=== PATIENT | female | born 1945 | race Caucasian/White ===

== ENCOUNTER 2016-07-20 09:46 | Observation (INO) | payer MEDICARE, BC ==
--- NOTE | 2016-07-20 10:07 | EDM.PDOC ---
ED HISTORY OF PRESENT ILLNESS - General Chief Complaint: Cardiovascular Problem Stated Complaint: A FIB Time Seen by Provider: 07/20/16 10:01 Source of Information: Reports: Patient History Limitations: Reports: No limitations - History of Present Illness INITIAL COMMENTS - FREE TEXT/NARRATIVE: 71-year-old female attends the ED with her . She is aware of palpitations in her chest for the last few days but quite bad overnight. She couldn't sleep because of the palpitations. Unclear of the right but notices that time it seems to be higher than 130. She has a history of intermittent atrial fibrillation. She is on digoxin for rate control.also on the Toprol and Cardizem.On Xarelto for blood thinner. No real significant symptoms related to the palpitations such as chest pain dyspnea dizziness or lightheadedness. She did have breakfast this morning. She did take all her normal medications. Only change recently was a decrease in her Bystolic medication to one half tabletthe last time she seen her section hand. Symptom Onset Date: 07/18/16 Timing/Duration: Reports: Hour(s):, Getting worse, Gradual onset Severity: moderate Location, General: Reports: chest (complications.) Quality: Reports: Other (no pain in her chest. Just the awareness of the palpitations is enough to be an irritant and make her worry that something more wrong.) Worsens with: Reports: None Context, General: Reports: Other (they don't seem to be any worse if she is up and walking.). Denies: Activity, Exercise, Lifting, Sick contact, Trauma Associated Symptoms (General): Reports: cough (bring up a little bit of), cough w sputum ( clear phlegm.clear phlegm), diaphoresis, malaise, weakness. Denies: chest pain, fever/chills, headaches, loss of appetite, nausea/vomiting, rash, seizure, shortness of breath, syncope Treatments SEED SERVICE ADVISOR: Reports: Other (see below) (9) - Related Data Allergies/ADRs: Allergies Allergy/AdvReac Type Severity Reaction Status Date / Time formaldehyde Allergy Severe Rash Verified 07/20/16 09:57 latex Allergy Severe Rash Verified 07/20/16 09:57 morphine Allergy Severe Rash Verified 07/20/16 09:57 Sulfa (Sulfonamide Allergy Severe Rash Verified 07/20/16 09:57 Antibiotics) celecoxib Allergy Unknown Cannot Verified 07/20/16 09:57 Remember fluconazole Allergy Unknown Cannot Verified 07/20/16 09:57 Remember quaternium [Quaternium] Allergy Unknown Cannot Verified 07/20/16 09:57 Remember tapentadol AdvReac Intermediate Hallucinati Verified 07/20/16 09:57 ons mushroom Allergy Severe Rash Uncoded 07/20/16 09:57 Home Meds: Home Meds Albuterol Sulfate [Albuterol Sulfate HFA] 2 puff INH DAILY PRN 07/11/14 [History ] Aspirin [Children's Aspirin] 81 mg PO DAILY 07/11/14 [History] Aspirin [Halfprin] 81 mg PO DAILY 07/11/14 [History] B2/Vit A,C & E/Lut/Zeaxanth/Mn [Icaps] 1 tab PO DAILY 07/11/14 [History] Clobetasol [Clobetasol 0.05%] 1 applic TOP ASDIRECTED PRN 07/11/14 [History] Desonide [Desonide 0.05%] 1 applic TOP ASDIRECTED PRN 07/11/14 [History] Diltiazem [Cardizem CD] 240 mg PO DAILY 07/11/14 [History] Docusate Sodium 100 mg PO DAILY 07/11/14 [History] Estradiol [Vagifem] 10 mcg PO ASDIRECTED 07/11/14 [History] Levothyroxine Sodium 25 mg PO DAILY 07/11/14 [History] Metoprolol Tartrate [Lopressor] 50 mg PO BID 07/11/14 [History] Nabumetone [Relafen] 500 mg PO ASDIRECTED 07/11/14 [History] Olmesartan Medoxomil [Benicar] 20 mg PO DAILY 07/11/14 [History] Omeprazole [Prilosec] 20 mg PO DAILY 07/11/14 [History] Triamcinolone Acetonide [Triamcinolone Acetonide 0.1% Crm] 1 applic TOP ASDIRECTED 07/11/14 [History] metFORMIN [Glucophage XR] 250 mg PO BID 07/11/14 [History] Digoxin [Lanoxin] 125 mcg PO DAILY #30 tablet 07/13/14 [Rx] Rivaroxaban [Xarelto] 20 mg PO QPM #30 tablet 07/13/14 [Rx] Diltiazem [Cardizem CD] 360 mg PO DAILY #30 cap.cd 07/20/16 [Rx] Magnesium Chloride [Slow-Mag] 71.5 mg PO DAILY #60 tablet. 07/20/16 [Rx] Past Medical History Cardiovascular History: Reports: Afib (intermittently. He is on Xarelto .), High cholesterol, Hypertension Respiratory History: Reports: Asthma Musculoskeletal History: Reports: Osteoarthritis Endocrine/Metabolic History: Reports: Diabetes, type II (using glyburide for control.), Hypothyroidism Social & Family History - Tobacco Use Smoking Status *Q: Never Smoker Second Hand Smoke Exposure: No - Alcohol Use Days Per Week of Alcohol Use: 0 - Recreational Drug Use Recreational Drug Use: No - Living Situation & Occupation Living situation: Reports: , with spouse Occupation: retired ED ROS GENERAL - Review of Systems Review Of Systems: See Below Constitutional: Reports: malaise, weakness, fatigue. Denies: fever, chills, night sweats, diaphoresis, decreased appetite, weight loss HEENT: Reports: No symptoms Respiratory: Reports: cough (with a bit of sputum production clear mostly.). Denies: shortness of breath, wheezing, pleuritic chest pain, sputum Cardiovascular: Reports: Blood pressure problem, Lightheadedness, Palpitations. Denies: Chest pain, Claudication (a little lower this morning than usual.), Dyspnea on exertion, Edema (very mild.), Orthopnea Endocrine: Reports: fatigue GI/Abdominal: Reports: Abdominal pain Musculoskeletal: Reports: no symptoms Skin: Reports: no symptoms Neurological: Reports: no symptoms Psychiatric: Reports: Anxiety ED EXAM, GENERAL - Physical Exam Exam: See Below Exam Limited By: No limitations General Appearance: alert, moderate distress (tearful and distressed because of the palpitations.) Eye Exam: bilateral eye: normal inspection Throat/Mouth: Normal inspection, Normal lips, Normal teeth, Normal oropharynx Head: atraumatic, normocephalic Neck: normal inspection, supple, non-tender, full range of motion. No: lymphadenopathy (L), lymphadenopathy (R) Respiratory/Chest: no respiratory distress, lungs clear, normal breath sounds, no accessory muscle use, chest non-tender. No: rales, rhonchi, wheezing Cardiovascular: no edema, no gallop, no murmur, no rub, irregularly irregular ( heart rate is anywhere from 75-147 was the highest ever seen it. Her the most part is seems to be controlled rate in the 70-95 range.) Peripheral Pulses: 1+: posterior tibial (L), posterior tibial (R), dorsalis pedis (L), dorsalis pedis (R) GI/Abdominal: normal bowel sounds, soft, non tender, no organomegaly, no distention, no abnormal bruit Back Exam: normal inspection, full range of motion. No: CVA tenderness (L), CVA tenderness (R) Extremities: normal inspection, normal range of motion, non-tender, no pedal edema, normal capillary refill Neurological: alert, oriented, CN II-XII intact, normal cognition, normal gait Psychiatric: tearful Skin Exam: Warm, Dry, Intact, Normal color, No rash ED CARDIOLOGY PROCEDURES - Cardioversion Time of Cardioversion: 15:53 Indication: atrial flutter with RVR Patient Counseled: Yes Informed Consent Obtained: Yes Preparation: IV access, airway management equipment, supplemental oxygen, RT in room, monitor, reversal agents available Pre-procedure Sedation: midazolam, fentanyl Cardioversion Energy: 50J sync Mode: biphasic Successful: Yes Number of Attempts: 1 Patient Condition Post Cardioversion: improved Post Cardioversion EKG Reviewed: Yes ED PROCEDURAL SEDATION - Pre Procedure Indications: other (cardioversion) Preparations: procedure explained, consent signed, RT in room, oxygen, continuous pulse oximeter, suction, continuous hall monitor, constant attendance, capnography - Physical Exam Airway: normal anatomy Cardiovascular: irregular rythum Respiratory: normal breath sounds Neurological: alert, responsive, NAD Meilampati Classification: 1 (soft palate, anterior/posterior tonsillar pillars , uvula visible) - Procedure Sedation Sedation: versed (PO) (4 mg), fentanyl (100 mcg) ASA Classification: 2 (Patient with a mild systemic disease) - Intra Procedure Condition during procedure: moderately sedated, vital signs stable, oxygenation stable, handled secretions adequately Complications: none Reversal: none - Post Procedure Condition after procedure: alert, NAD, responds to verbal stimuli - Discharge Condition Patient returned to pre-procedure baseline: Yes Alert prior to discharge: Yes Ambulatory with assistance: Yes Vital signs normal: Yes Time spent with sedated patient: 10 min EKG INTERPRETATION EKG Date: 07/20/16 Time: 10:15 Rhythm: a-flutter (with a 4-1 conduction block) Rate (beats/min): 68 [place]: LAD-left axis deviation (-50. IE left anterior fascicular block) P-wave: variable QRS: other (Q waves in leads V1 V2 suggesting old anteroseptal myocardial infarction.poor R-wave progression.) ST-T: depressed (mild ST depression V3 to V6.) QT: normal Course - Vital Signs Last Recorded V/S: Last Vital Signs Temp 36.4 C 07/20/16 09:57 Pulse 74 07/20/16 14:14 Resp 12 07/20/16 12:29 BP 116/63 07/20/16 14:14 Pulse Ox 100 07/20/16 12:29 - Orders/Labs/Meds Orders: Active Orders 24 hr Category Date Time Status EKG 12 Lead [EKG Documentation Completion] [RC] STAT Care 07/20/16 16:10 Active EKG Documentation Completion [RC] STAT Care 07/20/16 10:06 Active Chest 1V Frontal [CR] Stat Exams 07/20/16 10:06 Taken Sodium Chloride 0.9% [Normal Saline] 1,000 ml Med 07/20/16 10:15 Active IV ASDIRECTED Medication Orders Sodium Chloride (Normal Saline) 1,000 mls @ 100 mls/hr IV ASDIRECTED YOJANA Last Admin: 07/20/16 10:42 Dose: 100 mls/hr Labs: Laboratory Tests 07/20/16 07/20/16 07/20/16 Range/Units 10:22 10:22 10:22 WBC 8.13 (3.98-10.04) K/mm3 RBC 4.72 (3.98-5.22) M/mm3 Hgb 13.8 (11.2-15.7) gm/L Hct 41.8 (34.1-44.9) % MCV 88.6 (79.4-94.8) fl MCH 29.2 (25.6-32.2) pg MCHC 33.0 (32.2-35.5) g/dl RDW Std Deviation 44.7 (36.4-46.3) fL Plt Count 253 (182-369) K/mm3 MPV 10.3 (9.4-12.3) fl Neutrophils % (Manual) 47 (40-60) % Band Neutrophils % 0 (0-10) % Lymphocytes % (Manual) 44 H (20-40) % Atypical Lymphs % 0 % Monocytes % (Manual) 5 (2-10) % Eosinophils % (Manual) 4 (0.7-5.8) % Basophils % (Manual) 0 L (0.1-1.2) Platelet Estimate Adequate RBC Morph Comment Normal PT (8.0-13.0) SECONDS INR Sodium 140 (136-145) mEq/L Potassium 4.1 (3.5-5.1) mEq/L Chloride 105 (98-107) mEq/L Carbon Dioxide 25 (21-32) mEq/L Anion Gap 14.1 (5-15) BUN 16 (7-18) mg/dL Creatinine 1.1 H (0.55-1.02) mg/dL Est Cr Clr Drug Dosing 50.73 mL/min Estimated GFR (MDRD) 49 (>60) mL/min BUN/Creatinine Ratio 14.5 (14-18) Glucose 102 (83-115) mg/dL Calcium 9.7 (8.5-10.1) mg/dL Magnesium 1.7 L (1.8-2.4) mg/dl Total Bilirubin 0.4 (0.2-1.0) mg/dL AST 16 (15-37) U/L ALT 25 (14-59) U/L Alkaline Phosphatase 84 (46-116) U/L CK-MB (CK-2) 1.0 (0-3.6) ng/ml Troponin I < 0.017 (0.00-0.056) ng/mL C-Reactive Protein 0.5 (<1.0) mg/dL B-Natriuretic Peptide 251 H (0-100) pg/mL Total Protein 6.9 (6.4-8.2) g/dl Albumin 3.5 (3.4-5.0) g/dl Globulin 3.4 gm/dL Albumin/Globulin Ratio 1.0 (1-2) TSH 3rd Generation 0.517 (0.358-3.74) uIU/mL Urine Color (Yellow) Urine Appearance (Clear) Urine pH (5.0-8.0) Ur Specific [place] (1.005-1.030) Urine Protein (Negative) Urine Glucose (UA) (Negative) Urine Ketones (Negative) Urine Occult Blood (Negative) Urine Nitrite (Negative) Urine Bilirubin (Negative) Urine Urobilinogen (0.2-1.0) Ur Leukocyte Esterase (Negative) Urine RBC (0-5) /hpf Urine WBC (0-5) /hpf Ur Squamous Epith Cells (0-5) /hpf Urine Bacteria (FEW) /hpf Urine Mucus (FEW) /hpf Digoxin 0.7 L (0.9-2.0) ng/mL 07/20/16 07/20/16 Range/Units 10:22 11:30 WBC (3.98-10.04) K/mm3 RBC (3.98-5.22) M/mm3 Hgb (11.2-15.7) gm/L Hct (34.1-44.9) % MCV (79.4-94.8) fl MCH (25.6-32.2) pg MCHC (32.2-35.5) g/dl RDW Std Deviation (36.4-46.3) fL Plt Count (182-369) K/mm3 MPV (9.4-12.3) fl Neutrophils % (Manual) (40-60) % Band Neutrophils % (0-10) % Lymphocytes % (Manual) (20-40) % Atypical Lymphs % % Monocytes % (Manual) (2-10) % Eosinophils % (Manual) (0.7-5.8) % Basophils % (Manual) (0.1-1.2) Platelet Estimate RBC Morph Comment PT 11.8 (8.0-13.0) SECONDS INR 1.08 Sodium (136-145) mEq/L Potassium (3.5-5.1) mEq/L Chloride (98-107) mEq/L Carbon Dioxide (21-32) mEq/L Anion Gap (5-15) BUN (7-18) mg/dL Creatinine (0.55-1.02) mg/dL Est Cr Clr Drug Dosing mL/min Estimated GFR (MDRD) (>60) mL/min BUN/Creatinine Ratio (14-18) Glucose (83-115) mg/dL Calcium (8.5-10.1) mg/dL Magnesium (1.8-2.4) mg/dl Total Bilirubin (0.2-1.0) mg/dL AST (15-37) U/L ALT (14-59) U/L Alkaline Phosphatase (46-116) U/L CK-MB (CK-2) (0-3.6) ng/ml Troponin I (0.00-0.056) ng/mL C-Reactive Protein (<1.0) mg/dL B-Natriuretic Peptide (0-100) pg/mL Total Protein (6.4-8.2) g/dl Albumin (3.4-5.0) g/dl Globulin gm/dL Albumin/Globulin Ratio (1-2) TSH 3rd Generation (0.358-3.74) uIU/mL Urine Color Light yellow (Yellow) Urine Appearance Clear (Clear) Urine pH 6.5 (5.0-8.0) Ur Specific [place] 1.015 (1.005-1.030) Urine Protein Negative (Negative) Urine Glucose (UA) Negative (Negative) Urine Ketones Negative (Negative) Urine Occult Blood Trace-lysed H (Negative) Urine Nitrite Negative (Negative) Urine Bilirubin Negative (Negative) Urine Urobilinogen 0.2 (0.2-1.0) Ur Leukocyte Esterase Trace H (Negative) Urine RBC 0-5 (0-5) /hpf Urine WBC 5-10 H (0-5) /hpf Ur Squamous Epith Cells 5-10 H (0-5) /hpf Urine Bacteria Few (FEW) /hpf Urine Mucus Not seen (FEW) /hpf Digoxin (0.9-2.0) ng/mL Meds: Medications Generic Name Dose Route Start Last Admin Trade Name Freq PRN Reason Stop Dose Admin Sodium Chloride 1,000 mls @ 100 mls/hr 07/20/16 10:15 07/20/16 10:42 Normal Saline IV 100 mls/hr ASDIRECTED YOJANA Administration Discontinued Medications Generic Name Dose Route Start Last Admin Trade Name Freq PRN Reason Stop Dose Admin Diltiazem HCl 10 mg 07/20/16 12:18 07/20/16 12:33 Diltiazem IVPUSH 07/20/16 12:19 5 mg ONETIME ONE Administration Fentanyl 100 mcg 07/20/16 15:19 07/20/16 15:42 Sublimaze IVPUSH 07/20/16 15:20 100 mcg ONETIME ONE Administration Furosemide 40 mg 07/20/16 11:42 07/20/16 11:58 Lasix IVPUSH 07/20/16 11:43 40 mg NOW ONE Administration Metoprolol Tartrate 5 mg/ 55 mls @ 100 mls/hr 07/20/16 13:31 Sodium Chloride IV 07/20/16 14:03 ONETIME ONE Sodium Chloride 100 mls @ 999 mls/hr 07/20/16 16:15 Normal Saline IV 07/20/16 16:20 .BOLUS ONE Magnesium Oxide 400 mg 07/20/16 16:53 07/20/16 17:15 Magnesium Oxide PO 07/20/16 16:54 400 mg ONETIME ONE Administration Metoclopramide HCl 7.5 mg 07/20/16 15:17 07/20/16 15:33 Reglan IVPUSH 07/20/16 15:18 7.5 mg ONETIME ONE Administration Metoprolol Tartrate 5 mg 07/20/16 14:07 07/20/16 14:14 Lopressor IVPUSH 07/20/16 14:08 2 mg ONETIME ONE Administration Midazolam HCl 5 mg 07/20/16 15:19 07/20/16 15:48 Versed 1 Mg/Ml IVPUSH 07/20/16 15:20 Not Given ONETIME ONE Midazolam HCl Confirm 07/20/16 15:32 07/20/16 15:47 Versed 1 Mg/Ml Administered 07/20/16 15:33 6 mg Dose Administration 6 mg .ROUTE .[facility] ONE - Radiology Interpretation Free Text/Narrative:: 71-year-old female presents the ED with palpitations. She has a history of intermittent atrial fibrillation. She is rate controlled with digoxin metoprolol and Cartia sign. Bremer palpitations last 2-3 days but much worse over the last 24 hours. He disrupted his sleep last night because she is aware of palpitations. I think this is causing him anxiety in. There's something wrong. For the most part her rate is controlled in the 75-95 range. BP is 111/ 69. Sats are 96% on room air. She reports a productive cough. She denies soundly she is in failure jugular venous pulsations are not elevated. Therefore I will just have normal saline started at 100 mils per hour and monitor her for right. Serum digoxin level will be checked as well as routine labs including magnesium levels etc. One view chest x-ray to be done. - Re-Assessments/Exams Free Text/Narrative Re-Assessment/Exam: 07/20/16 11:10: ECG confirms atrial flutter with a 4-1 conduction block. There is a left anterior fascicular block with left axis deviation of -50. There are Q waves in leads V1 and V2 compatible with an old anteroseptal myocardial infarction. There is mild ST segment depression appreciated V3 to V6 leads. Abnormal ECG. Chest x-ray done portably shows normal size cardiac silhouette. There is some fullness of the right pulmonary artery and hilum. No pleural effusions are blunted costophrenic angles. 07/20/16 11:50 : labs reveal a white count of 8.13 with 47% neutrophils and no bands. Hemoglobin is 13.8 hematocrit of 41.6. Platelets 203,000. PT is 11.8 INR is 1.08. Creatinine is 1.1 anion gap is 14.1 magnesium slightly low at 1.7 BNP elevated at 251 digoxin therapeutic at 0.7. Plan would have her the nurses get her up on the commode and standing up around the bed side to see if her heart rate doesn't go up when she is standing. 07/20/16 12:19:heart rate jumps up to 133 per minute and his mother sustained. BP is one 111/68. Will give her Cardizem 10 mg IV bolus.ultimate plan will be to increase her Cardizem from 240-360 CD once daily. This should not help her to [place] level much higher than it already is. Blood pressure will need to be followed as she may not tolerate a higher dose of Cardizem. Slow-Mag 2 tablets once daily to her treatment plan to increase her magnesium level. 07/20/16 13:32 Even while sitting having dinner heart rate will travel as high as 130 per minute.will therefore give her Lopressor 5 mg IV over 5 minutes. 07/20/16 14:55her heart rate still wakes up into the one high 30s with sitting up. Blood pressure drops as low as 78 and is therefore very difficult to trying control rate. It is my believe that she needs to come into the hospital released as an observation status until we can adjust her medications slowly and appropriately to provide rate control as well as prevent significant hypertension. I will discuss her case with the on-call hospitalist at this time. 07/20/16 15:[address] Roca sewer separation designer hospitalist concern voiced about needing in the intensive care unit bed and at present one is not available.therefore I discussion entered into as to attempting cardioversion for this lady to try and restore normal sinus rhythm. I did discuss this with her and her and they've consented to the procedure under conscious sedation. Plan will be to use fentanyl and Versed. My plan would be then to have her admitted for observation after cardioversion. 07/20/16 16:19:cardioversion was carried out at 1553 hours and she returned to sinus rhythm at 72 per minutes after 50 J. BP remained a bit low in the 90s and therefore she will receive 100 mils fluid bolus for that ice saline at 150 mils per hour. Second ECG done shows sinus rhythm at 69 per minute. There is mild ST segment depression in V4 V5 and V6. There is Q waves in V1 and V2 suggestive of an old anteroseptal myocardial infarction similar to that identified on ECG # 1.note the initial troponins were less than 0.017. Free Text/Narrative Re-Assessment/Exam: 07/20/16 16:55 Patient is alert no acute and recovered from her conscious sedation. Heart rate remained sinus at 75 per minute. BP remains low at 102 / 68.will give her a magnesium oxide 400 mg tablet at this time. 07/20/16 18:05patient remains in sinus rhythm at 72 per minute. BP is up to 109 /on and 72 after 200 male fluid bolus. She is in mild congestive heart failure and we have given her a fair amount of fluid today. Will have to be monitored for development of congestive failure. Spoke with Dr. Roca and plan will be to admit her observation status on telemetry post cardioversion for atrial flutter. Departure - Departure Time of Disposition: 18:06 Disposition: Refer to Observation Condition: fair Clinical Impression: Atrial flutter, paroxysmal, Palpitations, History of cardioversion CHF NYHA class III (symptoms with mildly strenuous activities) Qualifiers: Congestive heart failure type: diastolic Congestive heart failure chronicity: acute on chronic Qualified Code(s): I50.33 - Acute on chronic diastolic ( congestive) heart failure Prescriptions: Diltiazem [Cardizem CD] 360 mg PO DAILY #30 cap.cd Magnesium Chloride [Slow-Mag] 71.5 mg PO DAILY #60 tablet. Instructions: Atrial Flutter, Heart Failure, [id number] Referrals: Cheko Herrera MD [Primary Care Provider] - Forms: ED Department Discharge Additional Instructions: ED HISTORY OF PRESENT ILLNESS - General Chief Complaint: Cardiovascular Problem Stated Complaint: A FIB Time Seen by Provider: 07/20/16 10:01 Source of Information: Reports: Patient History Limitations: Reports: No limitations - History of Present Illness INITIAL COMMENTS - FREE TEXT/NARRATIVE: 71-year-old female attends the ED with her . She is aware of palpitations in her chest for the last few days but quite bad overnight. She couldn't sleep because of the palpitations. Unclear of the right but notices that time it seems to be higher than 130. She has a history of intermittent atrial fibrillation. She is on digoxin for rate control.also on the Toprol and Cardizem.On Xarelto for blood thinner. No real significant symptoms related to the palpitations such as chest pain dyspnea dizziness or lightheadedness. She did have breakfast this morning. She did take all her normal medications. Only change recently was a decrease in her Bystolic medication to one half tabletthe last time she seen her section hand. Symptom Onset Date: 07/18/16 Timing/Duration: Reports: Hour(s):, Getting worse, Gradual onset Severity: moderate Location, General: Reports: chest (complications.) Quality: Reports: Other (no pain in her chest. Just the awareness of the palpitations is enough to be an irritant and make her worry that something more wrong.) Worsens with: Reports: None Context, General: Reports: Other (they don't seem to be any worse if she is up and walking.). Denies: Activity, Exercise, Lifting, Sick contact, Trauma Associated Symptoms (General): Reports: cough (bring up a little bit of), cough w sputum ( clear phlegm.clear phlegm), diaphoresis, malaise, weakness. Denies: chest pain, fever/chills, headaches, loss of appetite, nausea/vomiting, rash, seizure, shortness of breath, syncope Treatments SEED SERVICE ADVISOR: Reports: Other (see below) (9) - Related Data Allergies/ADRs: Allergies Allergy/AdvReac Type Severity Reaction Status Date / Time formaldehyde Allergy Severe Rash Verified 07/20/16 09:57 latex Allergy Severe Rash Verified 07/20/16 09:57 morphine Allergy Severe Rash Verified 07/20/16 09:57 Sulfa (Sulfonamide Allergy Severe Rash Verified 07/20/16 09:57 Antibiotics) celecoxib Allergy Unknown Cannot Verified 07/20/16 09:57 Remember fluconazole Allergy Unknown Cannot Verified 07/20/16 09:57 Remember quaternium [Quaternium] Allergy Unknown Cannot Verified 07/20/16 09:57 Remember tapentadol AdvReac Intermediate Hallucinati Verified 07/20/16 09:57 ons mushroom Allergy Severe Rash Uncoded 07/20/16 09:57 Home Meds: Home Meds Albuterol Sulfate [Albuterol Sulfate HFA] 2 puff INH DAILY PRN 07/11/14 [History ] Aspirin [Children's Aspirin] 81 mg PO DAILY 07/11/14 [History] Aspirin [Halfprin] 81 mg PO DAILY 07/11/14 [History] B2/Vit A,C & E/Lut/Zeaxanth/Mn [Icaps] 1 tab PO DAILY 07/11/14 [History] Clobetasol [Clobetasol 0.05%] 1 applic TOP ASDIRECTED PRN 07/11/14 [History] Desonide [Desonide 0.05%] 1 applic TOP ASDIRECTED PRN 07/11/14 [History] Diltiazem [Cardizem CD] 240 mg PO DAILY 07/11/14 [History] Docusate Sodium 100 mg PO DAILY 07/11/14 [History] Estradiol [Vagifem] 10 mcg PO ASDIRECTED 07/11/14 [History] Levothyroxine Sodium 25 mg PO DAILY 07/11/14 [History] Metoprolol Tartrate [Lopressor] 50 mg PO BID 07/11/14 [History] Nabumetone [Relafen] 500 mg PO ASDIRECTED 07/11/14 [History] Olmesartan Medoxomil [Benicar] 20 mg PO DAILY 07/11/14 [History] Omeprazole [Prilosec] 20 mg PO DAILY 07/11/14 [History] Triamcinolone Acetonide [Triamcinolone Acetonide 0.1% Crm] 1 applic TOP ASDIRECTED 07/11/14 [History] metFORMIN [Glucophage XR] 250 mg PO BID 07/11/14 [History] Digoxin [Lanoxin] 125 mcg PO DAILY #30 tablet 07/13/14 [Rx] Rivaroxaban [Xarelto] 20 mg PO QPM #30 tablet 07/13/14 [Rx] Diltiazem [Cardizem CD] 360 mg PO DAILY #30 cap.cd 07/20/16 [Rx] Magnesium Chloride [Slow-Mag] 71.5 mg PO DAILY #60 tablet. 07/20/16 [Rx] Past Medical History Cardiovascular History: Reports: Afib (intermittently. He is on Xarelto .), High cholesterol, Hypertension Respiratory History: Reports: Asthma Musculoskeletal History: Reports: Osteoarthritis Endocrine/Metabolic History: Reports: Diabetes, type II (using glyburide for control.), Hypothyroidism Social & Family History - Tobacco Use Smoking Status *Q: Never Smoker Second Hand Smoke Exposure: No - Alcohol Use Days Per Week of Alcohol Use: 0 - Recreational Drug Use Recreational Drug Use: No - Living Situation & Occupation Living situation: Reports: , with spouse Occupation: retired ED ROS GENERAL - Review of Systems Review Of Systems: See Below Constitutional: Reports: malaise, weakness, fatigue. Denies: fever, chills, night sweats, diaphoresis, decreased appetite, weight loss HEENT: Reports: No symptoms Respiratory: Reports: cough (with a bit of sputum production clear mostly.). Denies: shortness of breath, wheezing, pleuritic chest pain, sputum Cardiovascular: Reports: Blood pressure problem, Lightheadedness, Palpitations. Denies: Chest pain, Claudication (a little lower this morning than usual.), Dyspnea on exertion, Edema (very mild.), Orthopnea Endocrine: Reports: fatigue GI/Abdominal: Reports: Abdominal pain Musculoskeletal: Reports: no symptoms Skin: Reports: no symptoms Neurological: Reports: no symptoms Psychiatric: Reports: Anxiety ED EXAM, GENERAL - Physical Exam Exam: See Below Exam Limited By: No limitations General Appearance: alert, moderate distress (tearful and distressed because of the palpitations.) Eye Exam: bilateral eye: normal inspection Throat/Mouth: Normal inspection, Normal lips, Normal teeth, Normal oropharynx Head: atraumatic, normocephalic Neck: normal inspection, supple, non-tender, full range of motion. No: lymphadenopathy (L), lymphadenopathy (R) Respiratory/Chest: no respiratory distress, lungs clear, normal breath sounds, no accessory muscle use, chest non-tender. No: rales, rhonchi, wheezing Cardiovascular: no edema, no gallop, no murmur, no rub, irregularly irregular ( heart rate is anywhere from 75-147 was the highest ever seen it. Her the most part is seems to be controlled rate in the 70-95 range.) Peripheral Pulses: 1+: posterior tibial (L), posterior tibial (R), dorsalis pedis (L), dorsalis pedis (R) GI/Abdominal: normal bowel sounds, soft, non tender, no organomegaly, no distention, no abnormal bruit Back Exam: normal inspection, full range of motion. No: CVA tenderness (L), CVA tenderness (R) Extremities: normal inspection, normal range of motion, non-tender, no pedal edema, normal capillary refill Neurological: alert, oriented, CN II-XII intact, normal cognition, normal gait Psychiatric: tearful Skin Exam: Warm, Dry, Intact, Normal color, No rash EKG INTERPRETATION EKG Date: 07/20/16 Time: 10:15 Rhythm: a-flutter (with a 4-1 conduction block) Rate (beats/min): 68 [place]: LAD-left axis deviation (-50. IE left anterior fascicular block) P-wave: variable QRS: other (Q waves in leads V1 V2 suggesting old anteroseptal myocardial infarction.poor R-wave progression.) ST-T: depressed (mild ST depression V3 to V6.) QT: normal Course - Vital Signs Last Recorded V/S: Last Vital Signs Temp 36.4 C 07/20/16 09:57 Pulse 74 07/20/16 14:14 Resp 12 07/20/16 12:29 BP 116/63 07/20/16 14:14 Pulse Ox 100 07/20/16 12:29 - Orders/Labs/Meds Orders: Active Orders 24 hr Category Date Time Status EKG Documentation Completion [RC] STAT Care 07/20/16 10:06 Active Chest 1V Frontal [CR] Stat Exams 07/20/16 10:06 Taken Sodium Chloride 0.9% [Normal Saline] 1,000 ml Med 07/20/16 10:15 Active IV ASDIRECTED Medication Orders Sodium Chloride (Normal Saline) 1,000 mls @ 100 mls/hr IV ASDIRECTED YOJANA Last Admin: 07/20/16 10:42 Dose: 100 mls/hr Labs: Laboratory Tests 07/20/16 07/20/16 07/20/16 Range/Units 10:22 10:22 10:22 WBC 8.13 (3.98-10.04) K/mm3 RBC 4.72 (3.98-5.22) M/mm3 Hgb 13.8 (11.2-15.7) gm/L Hct 41.8 (34.1-44.9) % MCV 88.6 (79.4-94.8) fl MCH 29.2 (25.6-32.2) pg MCHC 33.0 (32.2-35.5) g/dl RDW Std Deviation 44.7 (36.4-46.3) fL Plt Count 253 (182-369) K/mm3 MPV 10.3 (9.4-12.3) fl Neutrophils % (Manual) 47 (40-60) % Band Neutrophils % 0 (0-10) % Lymphocytes % (Manual) 44 H (20-40) % Atypical Lymphs % 0 % Monocytes % (Manual) 5 (2-10) % Eosinophils % (Manual) 4 (0.7-5.8) % Basophils % (Manual) 0 L (0.1-1.2) Platelet Estimate Adequate RBC Morph Comment Normal PT (8.0-13.0) SECONDS INR Sodium 140 (136-145) mEq/L Potassium 4.1 (3.5-5.1) mEq/L Chloride 105 (98-107) mEq/L Carbon Dioxide 25 (21-32) mEq/L Anion Gap 14.1 (5-15) BUN 16 (7-18) mg/dL Creatinine 1.1 H (0.55-1.02) mg/dL Est Cr Clr Drug Dosing 50.73 mL/min Estimated GFR (MDRD) 49 (>60) mL/min BUN/Creatinine Ratio 14.5 (14-18) Glucose 102 (83-115) mg/dL Calcium 9.7 (8.5-10.1) mg/dL Magnesium 1.7 L (1.8-2.4) mg/dl Total Bilirubin 0.4 (0.2-1.0) mg/dL AST 16 (15-37) U/L ALT 25 (14-59) U/L Alkaline Phosphatase 84 (46-116) U/L CK-MB (CK-2) 1.0 (0-3.6) ng/ml Troponin I < 0.017 (0.00-0.056) ng/mL C-Reactive Protein 0.5 (<1.0) mg/dL B-Natriuretic Peptide 251 H (0-100) pg/mL Total Protein 6.9 (6.4-8.2) g/dl Albumin 3.5 (3.4-5.0) g/dl Globulin 3.4 gm/dL Albumin/Globulin Ratio 1.0 (1-2) TSH 3rd Generation 0.517 (0.358-3.74) uIU/mL Urine Color (Yellow) Urine Appearance (Clear) Urine pH (5.0-8.0) Ur Specific [place] (1.005-1.030) Urine Protein (Negative) Urine Glucose (UA) (Negative) Urine Ketones (Negative) Urine Occult Blood (Negative) Urine Nitrite (Negative) Urine Bilirubin (Negative) Urine Urobilinogen (0.2-1.0) Ur Leukocyte Esterase (Negative) Urine RBC (0-5) /hpf Urine WBC (0-5) /hpf Ur Squamous Epith Cells (0-5) /hpf Urine Bacteria (FEW) /hpf Urine Mucus (FEW) /hpf Digoxin 0.7 L (0.9-2.0) ng/mL 07/20/16 07/20/16 Range/Units 10:22 11:30 WBC (3.98-10.04) K/mm3 RBC (3.98-5.22) M/mm3 Hgb (11.2-15.7) gm/L Hct (34.1-44.9) % MCV (79.4-94.8) fl MCH (25.6-32.2) pg MCHC (32.2-35.5) g/dl RDW Std Deviation (36.4-46.3) fL Plt Count (182-369) K/mm3 MPV (9.4-12.3) fl Neutrophils % (Manual) (40-60) % Band Neutrophils % (0-10) % Lymphocytes % (Manual) (20-40) % Atypical Lymphs % % Monocytes % (Manual) (2-10) % Eosinophils % (Manual) (0.7-5.8) % Basophils % (Manual) (0.1-1.2) Platelet Estimate RBC Morph Comment PT 11.8 (8.0-13.0) SECONDS INR 1.08 Sodium (136-145) mEq/L Potassium (3.5-5.1) mEq/L Chloride (98-107) mEq/L Carbon Dioxide (21-32) mEq/L Anion Gap (5-15) BUN (7-18) mg/dL Creatinine (0.55-1.02) mg/dL Est Cr Clr Drug Dosing mL/min Estimated GFR (MDRD) (>60) mL/min BUN/Creatinine Ratio (14-18) Glucose (83-115) mg/dL Calcium (8.5-10.1) mg/dL Magnesium (1.8-2.4) mg/dl Total Bilirubin (0.2-1.0) mg/dL AST (15-37) U/L ALT (14-59) U/L Alkaline Phosphatase (46-116) U/L CK-MB (CK-2) (0-3.6) ng/ml Troponin I (0.00-0.056) ng/mL C-Reactive Protein (<1.0) mg/dL B-Natriuretic Peptide (0-100) pg/mL Total Protein (6.4-8.2) g/dl Albumin (3.4-5.0) g/dl Globulin gm/dL Albumin/Globulin Ratio (1-2) TSH 3rd Generation (0.358-3.74) uIU/mL Urine Color Light yellow (Yellow) Urine Appearance Clear (Clear) Urine pH 6.5 (5.0-8.0) Ur Specific [place] 1.015 (1.005-1.030) Urine Protein Negative (Negative) Urine Glucose (UA) Negative (Negative) Urine Ketones Negative (Negative) Urine Occult Blood Trace-lysed H (Negative) Urine Nitrite Negative (Negative) Urine Bilirubin Negative (Negative) Urine Urobilinogen 0.2 (0.2-1.0) Ur Leukocyte Esterase Trace H (Negative) Urine RBC 0-5 (0-5) /hpf Urine WBC 5-10 H (0-5) /hpf Ur Squamous Epith Cells 5-10 H (0-5) /hpf Urine Bacteria Few (FEW) /hpf Urine Mucus Not seen (FEW) /hpf Digoxin (0.9-2.0) ng/mL Meds: Medications Generic Name Dose Route Start Last Admin Trade Name Jenna PRN Reason Stop Dose Admin Sodium Chloride 1,000 mls @ 100 mls/hr 07/20/16 10:15 07/20/16 10:42 Normal Saline IV 100 mls/hr ASDIRECTED YOJANA Administration Discontinued Medications Generic Name Dose Route Start Last Admin Trade Name Jenna PRN Reason Stop Dose Admin Diltiazem HCl 10 mg 07/20/16 12:18 07/20/16 12:33 Diltiazem IVPUSH 07/20/16 12:19 5 mg ONETIME ONE Administration Furosemide 40 mg 07/20/16 11:42 07/20/16 11:58 Lasix IVPUSH 07/20/16 11:43 40 mg NOW ONE Administration Metoprolol Tartrate 5 mg/ 55 mls @ 100 mls/hr 07/20/16 13:31 Sodium Chloride IV 07/20/16 14:03 ONETIME ONE Metoprolol Tartrate 5 mg 07/20/16 14:07 07/20/16 14:14 Lopressor IVPUSH 07/20/16 14:08 2 mg ONETIME ONE Administration - Radiology Interpretation Free Text/Narrative:: 71-year-old female presents the ED with palpitations. She has a history of intermittent atrial fibrillation. She is rate controlled with digoxin metoprolol and Cartia sign. Bremer palpitations last 2-3 days but much worse over the last 24 hours. He disrupted his sleep last night because she is aware of palpitations. I think this is causing him anxiety in. There's something wrong. For the most part her rate is controlled in the 75-95 range. BP is 111/ 69. Sats are 96% on room air. She reports a productive cough. She denies soundly she is in failure jugular venous pulsations are not elevated. Therefore I will just have normal saline started at 100 mils per hour and monitor her for right. Serum digoxin level will be checked as well as routine labs including magnesium levels etc. One view chest x-ray to be done. - Re-Assessments/Exams Free Text/Narrative Re-Assessment/Exam: 07/20/16 11:10: ECG confirms atrial flutter with a 4-1 conduction block. There is a left anterior fascicular block with left axis deviation of -50. There are Q waves in leads V1 and V2 compatible with an old anteroseptal myocardial infarction. There is mild ST segment depression appreciated V3 to V6 leads. Abnormal ECG. Chest x-ray done portably shows normal size cardiac silhouette. There is some fullness of the right pulmonary artery and hilum. No pleural effusions are blunted costophrenic angles. 07/20/16 11:50 : labs reveal a white count of 8.13 with 47% neutrophils and no bands. Hemoglobin is 13.8 hematocrit of 41.6. Platelets 203,000. PT is 11.8 INR is 1.08. Creatinine is 1.1 anion gap is 14.1 magnesium slightly low at 1.7 BNP elevated at 251 digoxin therapeutic at 0.7. Plan would have her the nurses get her up on the commode and standing up around the bed side to see if her heart rate doesn't go up when she is standing. 07/20/16 12:19:heart rate jumps up to 133 per minute and his mother sustained. BP is one 111/68. Will give her Cardizem 10 mg IV bolus.ultimate plan will be to increase her Cardizem from 240-360 CD once daily. This should not help her to [place] level much higher than it already is. Blood pressure will need to be followed as she may not tolerate a higher dose of Cardizem. Slow-Mag 2 tablets once daily to her treatment plan to increase her magnesium level. 07/20/16 13:32 Even while sitting having dinner heart rate will travel as high as 130 per minute.will therefore give her Lopressor 5 mg IV over 5 minutes. Departure - Departure Time of Disposition: 11:48 Disposition: Home, Self-Care 01 Condition: fair Clinical Impression: Atrial flutter, paroxysmal CHF NYHA class III (symptoms with mildly strenuous activities) Qualifiers: Congestive heart failure type: diastolic Congestive heart failure chronicity: acute on chronic Qualified Code(s): I50.33 - Acute on chronic diastolic ( congestive) heart failure Prescriptions: Diltiazem [Cardizem CD] 360 mg PO DAILY #30 cap.cd Magnesium Chloride [Slow-Mag] 71.5 mg PO DAILY #60 tablet. Instructions: Atrial Flutter, Heart Failure, [id number] Referrals: Cheko Herrera MD [Primary Care Provider] - Forms: ED Department Discharge Additional Instructions: Evaluation in the emergency room today in regards to recurrence of paroxysmal atrial flutter. This causes palpitations within your chest. You have a history of similar episodes in the past although they have not lasted this long in the past. Lab work identified serum digoxn to be in the therapeutic range. This is one of the medicines being used to control heart rate . Cardizem dose is currently 240 mg extended release or CD preparation . Suggest increasing this to 360 mg once daily in an effort to bring rate under better control. Metoprolol will also be continued at 50 twice a day as it is being used for blood pressure and rate control as well. At this time the Benicar can stay at 20 mg once daily. The only other thing identified in your lab work was a slightly low serum magnesium level. It would be beneficial to take a magnesium supplement called Slow-Mag 2 tablets once daily as a supplement. Labs also did identify a little extra fluid within your lungs today, likely due to the elevated heart rate over the last day or 2. You did receive Lasix 40 mg intravenously while in the ED to help clear fluid from the lungs.when used in a collar your heart rate did increase to as high as 137 per minute. He therefore ordered given a 10 mg dose of extra cardizem to help control rate. the increased dose in cardia sign to 360 mg CD preparation hopefully will control rate better and prevent recurrence of paroxysmal atrial flutter in the future.Suggest followup with your personal physician in 4-5 days time for blood pressure and heart rate review.Suggest starting the new dose of Cardizem tomorrow. - My Orders Last 24 Hours: My Active Orders 07/20/16 10:06 EKG Documentation Completion [RC] STAT Chest 1V Frontal [CR] Stat 07/20/16 10:15 Sodium Chloride 0.9% [Normal Saline] 1,000 ml IV ASDIRECTED - Assessment/Plan Last 24 Hours: My Active Orders 07/20/16 10:06 EKG Documentation Completion [RC] STAT Chest 1V Frontal [CR] Stat 07/20/16 10:15 Sodium Chloride 0.9% [Normal Saline] 1,000 ml IV ASDIRECTED Evaluation in the emergency room today in regards to recurrence of paroxysmal atrial flutter. This causes palpitations within your chest. You have a history of similar episodes in the past although they have not lasted this long in the past. Lab work identified serum digoxn to be in the therapeutic range. This is one of the medicines being used to control heart rate . Cardizem dose is currently 240 mg extended release or CD preparation . Suggest increasing this to 360 mg once daily in an effort to bring rate under better control. Metoprolol will also be continued at 50 twice a day as it is being used for blood pressure and rate control as well. At this time the Benicar can stay at 10 mg once daily. The only other thing identified in your lab work was a slightly low serum magnesium level. It would be beneficial to take a magnesium supplement called Slow-Mag 2 tablets once daily as a supplement. Labs also did identify a little extra fluid within your lungs today, likely due to the elevated heart rate over the last day or 2. You did receive Lasix 40 mg intravenously while in the ED to help clear fluid from the lungs.when used in a collar your heart rate did increase to as high as 137 per minute. You were therefore given a 10 mg dose of cardizem to help control rate. due to continued elevated heart rate well eating dinner up to 123 and 1:30 per minute you were given a small dose of metoprolol or Lopressor 2 mg. The plan is to give you a little bit more but it did have an affect to drop your blood pressure and therefore 2 mg only was given. Take her normal dose of metoprolol tonight at suppertime. Plan is to increase your cardizem to 360 mg CD preparation once daily which will hopefully provide better rater control and prevent recurrence of paroxysmal atrial flutter in the future. Suggest followup with your personal physician in 3-4 days time for blood pressure and heart rate review.Suggest starting the new dose of Cardizem tomorrow. - My Orders Last 24 Hours: My Active Orders 07/20/16 10:06 EKG Documentation Completion [RC] STAT Chest 1V Frontal [CR] Stat 07/20/16 10:15 Sodium Chloride 0.9% [Normal Saline] 1,000 ml IV ASDIRECTED 07/20/16 16:10 EKG 12 Lead [EKG Documentation Completion] [RC] STAT - Assessment/Plan Last 24 Hours: My Active Orders 07/20/16 10:06 EKG Documentation Completion [RC] STAT Chest 1V Frontal [CR] Stat 07/20/16 10:15 Sodium Chloride 0.9% [Normal Saline] 1,000 ml IV ASDIRECTED 07/20/16 16:10 EKG 12 Lead [EKG Documentation Completion] [RC] STAT
[2016-07-20] MEDS: Sodium Chloride 0.9% 1,000 ML IV SCH ×2 (10:42→20:36)
[2016-07-20] MEDS ORDERED: Furosemide 40 MG/4 ML VIAL IVPUSH ONE (11:42)
[2016-07-20] MEDS: Diltiazem 25 MG/5 ML SDV IVPUSH ONE ×2 (12:27→12:33)
[2016-07-20] MEDS ORDERED: Metoprolol Tartrate 5 MG in Sodium Chloride 0.9% 50 ML IV ONE (13:31)
[2016-07-20] MEDS ORDERED: Metoprolol Tartrate 5 MG/5 ML SDV IVPUSH ONE (14:07)
[2016-07-20] MEDS ORDERED: Metoclopramide 10 MG/2 ML SDV IVPUSH ONE (15:17)
[2016-07-20] MEDS ORDERED: Midazolam 1 MG/ML 5 ML SDV IVPUSH ONE (15:19)
[2016-07-20] MEDS ORDERED: fentaNYL 100 MCG/2 ML SDV IVPUSH ONE (15:19)
[2016-07-20] MEDS ORDERED: Midazolam 1 MG/ML 2 ML SDV ONE (15:32)
[2016-07-20] MEDS ORDERED: Sodium Chloride 0.9% 100 ML IV ONE (16:15)
[2016-07-20] MEDS ORDERED: Magnesium Oxide 400 MG Tab PO ONE (16:53)
--- NOTE | 2016-07-20 18:10 | PCM.HP ---
H&P History of Present Illness - General Date of Service: 07/20/16 Admit Problem/Dx: Admission Diagnosis/Problem Admission Diagnosis/Problem Hypotension Source of Information: Patient, Old records, Provider, RN notes reviewed History Limitations: Reports: No limitations - History of Present Illness Initial Comments - Free Text/Narative: This is a 71 yo elderly white female with past medical hx/o HTN, HLD, Asthma, OA , DM2, GERD, and Hypothyroidism who comes in with c/o chest palpitations that started a few days ago and got worse overnight. She was found in Afib-RVR wtih HR in the high 130s-140s on presentation to ED. Patient carries a hx/o Paroxysmal Atrial Flutter on xarelto. She takes metoprolol, digoxin and cardizem for rate control medications. She admits to a little cough, diaphoresis, malaise and weakness for associated symptoms. 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 On her last visit her BB dose was cut down to half. Her EKG shows Atrial flutter with 4:1 conduction block with Q waves on lead V1- V2. Her CXR shows no acute abnormal findings. While, in ED patient underwent she received initial treatment but barely improved her heart rate. With poor response to initial rate control meds, patient and were offered for electrical candioversion and they agreed with the procedure. After fentanyl/versed were administered, patient them was cardioverted one time with 50J and her rhythm went into sinus with a rate of 72 bpm. However the patient developed post cardioversion hypotension and so she was referred to me for observation. She is full code. - Related Data Allergies/Adverse Reactions: Allergies Allergy/AdvReac Type Severity Reaction Status Date / Time formaldehyde Allergy Severe Rash Verified 07/20/16 09:57 latex Allergy Severe Rash Verified 07/20/16 09:57 morphine Allergy Severe Rash Verified 07/20/16 09:57 Sulfa (Sulfonamide Allergy Severe Rash Verified 07/20/16 09:57 Antibiotics) celecoxib Allergy Unknown Cannot Verified 07/20/16 09:57 Remember fluconazole Allergy Unknown Cannot Verified 07/20/16 09:57 Remember quaternium [Quaternium] Allergy Unknown Cannot Verified 07/20/16 09:57 Remember tapentadol AdvReac Intermediate Hallucinati Verified 07/20/16 09:57 ons mushroom Allergy Severe Rash Uncoded 07/20/16 09:57 Home Medications: Home Meds Diltiazem [Cardizem CD] 240 mg PO DAILY 07/11/14 [History] Estradiol [Vagifem] 10 mcg PO ASDIRECTED 07/11/14 [History] Levothyroxine Sodium 25 mg PO DAILY 07/11/14 [History] Metoprolol Tartrate [Lopressor] 50 mg PO BID 07/11/14 [History] Nabumetone [Relafen] 500 mg PO ASDIRECTED 07/11/14 [History] Olmesartan Medoxomil [Benicar] 10 mg PO DAILY 07/11/14 [History] Omeprazole [Prilosec] 20 mg PO DAILY 07/11/14 [History] Triamcinolone Acetonide [Triamcinolone Acetonide 0.1% Crm] 1 applic TOP ASDIRECTED 07/11/14 [History] metFORMIN [Glucophage XR] 1,000 mg PO BID 07/11/14 [History] Digoxin [Lanoxin] 125 mcg PO DAILY #30 tablet 07/13/14 [Rx] Rivaroxaban [Xarelto] 20 mg PO QPM #30 tablet 07/13/14 [Rx] Past Medical History Cardiovascular History: Reports: Afib (intermittently. He is on Xarelto .), High cholesterol, Hypertension Respiratory History: Reports: Asthma Musculoskeletal History: Reports: Osteoarthritis Endocrine/Metabolic History: Reports: Diabetes, type II (using glyburide for control.), Hypothyroidism Social & Family History - Tobacco Use Smoking Status *Q: Never Smoker Second Hand Smoke Exposure: No - Alcohol Use Days Per Week of Alcohol Use: 0 - Recreational Drug Use Recreational Drug Use: No - Living Situation & Occupation Living situation: Reports: , with spouse Occupation: retired H&P Review of Systems - Review of Systems: Review Of Systems: ROS reveals no pertinent complaints other than HPI. Exam - Exam Exam: See Below - Vital Signs Vital Signs: Last Vital Signs Temp 36.4 C 07/20/16 09:57 Pulse 74 07/20/16 14:14 Resp 12 07/20/16 12:29 BP 116/63 07/20/16 14:14 Pulse Ox 100 07/20/16 12:29 Weight: 96.615 kg - Exam General: alert, oriented, cooperative, mild distress HEENT: Conjunctiva clear, EACs clear, EOMI, Hearing intact, Mucosa moist & pink , Nares patent, Posterior pharynx clear, PERRLA Neck: supple, trachea midline, 2+ carotid pulse wo bruit, full range of motion Lungs: Clear to auscultation, Normal respiratory effort Cardiovascular: regular rate, regular rhythm Abdomen: normal bowel sounds, soft, organomegaly (Female) Exam: Deferred Rectal (Female) Exam: Deferred Back Exam: normal inspection, decreased range of motion Extremities: normal inspection, normal pulses. No: clubbing, cyanosis, calf tenderness, edema Peripheral Pulses: 2+: posterior tibial (L), posterior tibial (R), dorsalis pedis (L), dorsalis pedis (R) Skin: warm, dry, intact Neuro Extensive - Mental Status: oriented x3, normal cognition, memory intact Neuro Extensive - Motor, Sensory, Reflexes: CN II-XII intact Psychiatric: alert, normal affect, normal mood - Patient Data Lab Results last 24 hrs: Laboratory Results - last 24 hr 07/20/16 07/20/16 07/20/16 Range/Units 10:22 10:22 10:22 WBC 8.13 (3.98-10.04) K/mm3 RBC 4.72 (3.98-5.22) M/mm3 Hgb 13.8 (11.2-15.7) gm/L Hct 41.8 (34.1-44.9) % MCV 88.6 (79.4-94.8) fl MCH 29.2 (25.6-32.2) pg MCHC 33.0 (32.2-35.5) g/dl RDW Std Deviation 44.7 (36.4-46.3) fL Plt Count 253 (182-369) K/mm3 MPV 10.3 (9.4-12.3) fl Neutrophils % (Manual) 47 (40-60) % Band Neutrophils % 0 (0-10) % Lymphocytes % (Manual) 44 H (20-40) % Atypical Lymphs % 0 % Monocytes % (Manual) 5 (2-10) % Eosinophils % (Manual) 4 (0.7-5.8) % Basophils % (Manual) 0 L (0.1-1.2) Platelet Estimate Adequate RBC Morph Comment Normal PT (8.0-13.0) SECONDS INR Sodium 140 (136-145) mEq/L Potassium 4.1 (3.5-5.1) mEq/L Chloride 105 (98-107) mEq/L Carbon Dioxide 25 (21-32) mEq/L Anion Gap 14.1 (5-15) BUN 16 (7-18) mg/dL Creatinine 1.1 H (0.55-1.02) mg/dL Est Cr Clr Drug Dosing 50.73 mL/min Estimated GFR (MDRD) 49 (>60) mL/min BUN/Creatinine Ratio 14.5 (14-18) Glucose 102 (83-115) mg/dL Calcium 9.7 (8.5-10.1) mg/dL Magnesium 1.7 L (1.8-2.4) mg/dl Total Bilirubin 0.4 (0.2-1.0) mg/dL AST 16 (15-37) U/L ALT 25 (14-59) U/L Alkaline Phosphatase 84 (46-116) U/L CK-MB (CK-2) 1.0 (0-3.6) ng/ml Troponin I < 0.017 (0.00-0.056) ng/mL C-Reactive Protein 0.5 (<1.0) mg/dL B-Natriuretic Peptide 251 H (0-100) pg/mL Total Protein 6.9 (6.4-8.2) g/dl Albumin 3.5 (3.4-5.0) g/dl Globulin 3.4 gm/dL Albumin/Globulin Ratio 1.0 (1-2) TSH 3rd Generation 0.517 (0.358-3.74) uIU/mL Urine Color (Yellow) Urine Appearance (Clear) Urine pH (5.0-8.0) Ur Specific [place] (1.005-1.030) Urine Protein (Negative) Urine Glucose (UA) (Negative) Urine Ketones (Negative) Urine Occult Blood (Negative) Urine Nitrite (Negative) Urine Bilirubin (Negative) Urine Urobilinogen (0.2-1.0) Ur Leukocyte Esterase (Negative) Urine RBC (0-5) /hpf Urine WBC (0-5) /hpf Ur Squamous Epith Cells (0-5) /hpf Urine Bacteria (FEW) /hpf Urine Mucus (FEW) /hpf Digoxin 0.7 L (0.9-2.0) ng/mL 07/20/16 07/20/16 Range/Units 10:22 11:30 WBC (3.98-10.04) K/mm3 RBC (3.98-5.22) M/mm3 Hgb (11.2-15.7) gm/L Hct (34.1-44.9) % MCV (79.4-94.8) fl MCH (25.6-32.2) pg MCHC (32.2-35.5) g/dl RDW Std Deviation (36.4-46.3) fL Plt Count (182-369) K/mm3 MPV (9.4-12.3) fl Neutrophils % (Manual) (40-60) % Band Neutrophils % (0-10) % Lymphocytes % (Manual) (20-40) % Atypical Lymphs % % Monocytes % (Manual) (2-10) % Eosinophils % (Manual) (0.7-5.8) % Basophils % (Manual) (0.1-1.2) Platelet Estimate RBC Morph Comment PT 11.8 (8.0-13.0) SECONDS INR 1.08 Sodium (136-145) mEq/L Potassium (3.5-5.1) mEq/L Chloride (98-107) mEq/L Carbon Dioxide (21-32) mEq/L Anion Gap (5-15) BUN (7-18) mg/dL Creatinine (0.55-1.02) mg/dL Est Cr Clr Drug Dosing mL/min Estimated GFR (MDRD) (>60) mL/min BUN/Creatinine Ratio (14-18) Glucose (83-115) mg/dL Calcium (8.5-10.1) mg/dL Magnesium (1.8-2.4) mg/dl Total Bilirubin (0.2-1.0) mg/dL AST (15-37) U/L ALT (14-59) U/L Alkaline Phosphatase (46-116) U/L CK-MB (CK-2) (0-3.6) ng/ml Troponin I (0.00-0.056) ng/mL C-Reactive Protein (<1.0) mg/dL B-Natriuretic Peptide (0-100) pg/mL Total Protein (6.4-8.2) g/dl Albumin (3.4-5.0) g/dl Globulin gm/dL Albumin/Globulin Ratio (1-2) TSH 3rd Generation (0.358-3.74) uIU/mL Urine Color Light yellow (Yellow) Urine Appearance Clear (Clear) Urine pH 6.5 (5.0-8.0) Ur Specific [place] 1.015 (1.005-1.030) Urine Protein Negative (Negative) Urine Glucose (UA) Negative (Negative) Urine Ketones Negative (Negative) Urine Occult Blood Trace-lysed H (Negative) Urine Nitrite Negative (Negative) Urine Bilirubin Negative (Negative) Urine Urobilinogen 0.2 (0.2-1.0) Ur Leukocyte Esterase Trace H (Negative) Urine RBC 0-5 (0-5) /hpf Urine WBC 5-10 H (0-5) /hpf Ur Squamous Epith Cells 5-10 H (0-5) /hpf Urine Bacteria Few (FEW) /hpf Urine Mucus Not seen (FEW) /hpf Digoxin (0.9-2.0) ng/mL Result Diagrams: 07/20/16 10:22 07/20/16 10:22 Gavin Results last 24 hrs: Microbiology 07/20/16 10:27 Influenza Type A Antigen Screen - Final Nasopharyngeal Swab - Nare, Right NEGATIVE INFLUENZA A VIRUS AG Influenza Type B Antigen Screen - Final NEGATIVE INFLUENZA B VIRUS AG EKG INTERPRETATION EKG Date: 07/20/16 Time: 10:15 Rhythm: a-flutter Rate (beats/min): 68 [place]: LAD-left axis deviation EKG Interpretation Comments: Q wave V1-V2 *Q Meaningful Use (ADM) - VTE *Q VTE Criteria *Q: - Stroke *Q Stroke Criteria *Q: - AMI *Q AMI Criteria *Q: Problem List Initiated/Reviewed/Updated: Yes Orders Last 24hrs: Active Orders 24 hr Category Date Time Status Admission Status [Patient Status] [ADT] Routine ADT 07/20/16 18:03 Active EKG 12 Lead [EKG Documentation Completion] [RC] STAT Care 07/20/16 16:10 Active EKG Documentation Completion [RC] STAT Care 07/20/16 10:06 Active Chest 1V Frontal [CR] Stat Exams 07/20/16 10:06 Taken Sodium Chloride 0.9% [Normal Saline] 1,000 ml Med 07/20/16 10:15 Active IV ASDIRECTED Medication Orders Sodium Chloride (Normal Saline) 1,000 mls @ 100 mls/hr IV ASDIRECTED [facility] Last Admin: 07/20/16 10:42 Dose: 100 mls/hr Assessment/Plan Comment:: Assessment/Plan: Acute: Atrial Flutter with 4:1 conduction S/p Cardioversion - Carries hx/o atrial arrhythmia - Monitor overnight - Continue rate control meds: - Xarelto for blood thinner - Will check thyroid panel in am Relative Hypotension - Post procedural: likely drug induced as dose rate control meds are known to affect BPs - Will monitor patient - Will hold his other BP home meds Chronic: HTN HLD Asthma OA GERD DM2 Hypothyroidism Plan: Admit to OBS w/ Tele Routine AM Labs Resume Home Meds except Benicar for now PT/OT consult EKG in AM SW/CM for d/c planning Follow up cardiology after discharge Possible d/c in am
[2016-07-20] MEDS ORDERED: Acetaminophen/HYDROcodone 325-5 MG Tab PO PRN (18:25)
[2016-07-20] MEDS ORDERED: Ondansetron 4 MG/2 ML SDV IV PRN (18:25)
[2016-07-20] MEDS ORDERED: HYDROmorphone 0.5 MG/0.5 ML Syringe IVPUSH PRN (18:25)
[2016-07-20] MEDS ORDERED: Polyethylene Glycol 3350 Powder 17 GM Packet PO PRN (18:25)
[2016-07-20] MEDS ORDERED: Promethazine 12.5 MG in Sodium Chloride 0.9% 50 ML IV PRN (18:25)
[2016-07-20] MEDS ORDERED: Bisacodyl 5 MG Tab PO PRN (18:25)
[2016-07-20] MEDS ORDERED: Temazepam 15 MG Cap PO PRN (18:25)
[2016-07-20] MEDS ORDERED: Acetaminophen 325 MG Tab PO PRN (18:25)
[2016-07-20] MEDS ORDERED: Albuterol/Ipratropium 3.0-0.5 MG/3 ML Neb Soln NEB PRN (18:25)
[2016-07-20] MEDS ORDERED: LORazepam 2 MG/ML MDV IV PRN (18:25)
[2016-07-20] MEDS ORDERED: 50% Dextrose in Water 50 ML Syringe IVPUSH PRN (18:29)
[2016-07-20] MEDS ORDERED: Triamcinolone Acetonide 0.1% Crm 15 GM Tube TOP PRN (18:30)
[2016-07-20] MEDS ORDERED: NABUMETONE 500 MG PO SCH (18:30)
[2016-07-20] MEDS ORDERED: Rivaroxaban 10 MG Tab PO SCH (22:15)
[2016-07-20] MEDS: Metoprolol Tartrate 50 MG Tab PO SCH (22:18)
[2016-07-20] MEDS: metFORMIN 500 MG Tab PO SCH (22:19)
[2016-07-20] MEDS: Insulin Aspart 100 Units/ML 3 ML Pen SUBCUT SCH (22:19)
[2016-07-21] MEDS ORDERED: Levothyroxine 25 MCG Tab PO SCH (06:00)
[2016-07-21] MEDS: Sodium Chloride 0.9% 1,000 ML IV SCH (06:42)
[2016-07-21] MEDS ORDERED: Pantoprazole 40 MG Tab.CR PO SCH (07:00)
--- NOTE | 2016-07-21 07:14 | CR ---
Chest: Portable view of the chest was obtained. Comparison: Previous chest x-ray of 07/11/14. Small granuloma is again seen within the left base. Minimal nodule within the upper right lung seen on prior chest x-ray is also felt to be stable. Heart size is normal. Mild tortuosity of the thoracic aorta is seen. No acute infiltrates are seen. Previous lumbar spine surgery is noted. Impression: 1. Small nodules within the chest as noted above which appear to be stable. 2. Nothing acute is seen. Other incidental findings. Diagnostic code #2
[2016-07-21] MEDS: metFORMIN 500 MG Tab PO SCH ×2 (07:41→08:38)
[2016-07-21] MEDS: Insulin Aspart 100 Units/ML 3 ML Pen SUBCUT SCH (07:41)
[2016-07-21] MEDS ORDERED: Magnesium Sulfate/Water 2 GM in Premix Bag 1 BAG IV ONE (08:08)
[2016-07-21 08:25] VITALS: BP 143/99
[2016-07-21] MEDS: Metoprolol Tartrate 50 MG Tab PO SCH (08:25)
[2016-07-21] MEDS ORDERED: Non-Formulary Medication 1 Each (Omeprazole 20 MG) PO SCH (09:00)
[2016-07-21] MEDS ORDERED: LEVOTHYROXINE SODIUM PO SCH (09:00)
[2016-07-21] MEDS ORDERED: Digoxin 125 MCG Tab PO SCH (09:00)
[2016-07-21] MEDS ORDERED: Diltiazem 240 MG Cap.ER PO SCH (09:00)
[2016-07-21] MEDS ORDERED: OLMESARTAN 10 MG PO SCH (09:00)
--- NOTE | 2016-07-21 09:05 | PCM.DCSUM1 ---
Discharge Summary - Hospital Course Free Text/Narrative:: This is a 71 yo elderly white female with past medical hx/o HTN, HLD, Asthma, OA , DM2, GERD, and Hypothyroidism who comes in with c/o chest palpitations that started a few days ago and got worse overnight. She was found in Afib-RVR wtih HR in the high 130s-140s on presentation to ED. Patient carries a hx/o Paroxysmal Atrial Flutter on xarelto. She takes metoprolol, digoxin and cardizem for rate control medications. She admits to a little cough, diaphoresis, malaise and weakness for associated symptoms. 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 On her last visit her BB dose was cut down to half. Her EKG shows Atrial flutter with 4:1 conduction block with Q waves on lead V1- V2. Her CXR shows no acute abnormal findings. While, in ED patient underwent she received initial treatment but barely improved her heart rate. With poor response to initial rate control meds, patient and were offered for electrical candioversion and they agreed with the procedure. After fentanyl/versed were administered, patient them was cardioverted one time with 50J and her rhythm went into sinus with a rate of 72 bpm. However the patient developed post cardioversion hypotension and so she was referred to Hospitalist service for observation. She is full code. Overnight, VS remained stable, telemetry was unchanged in sinus rhythm. EKG repeated this am is with sinus rhythm with rate of 86bpm. Magnesium was low this morning at 1.4, replaced with 2gm IV. She will be discharged home on magnesium supplementation BID with usual home medications. follow up with Dr. Herrera her PCP within 3-5 days for close follow up and with Dr. Vieyra Academic Adviser as previously scheduled. - Discharge Data Discharge Date: 07/21/16 (admit date 07/20/16) Discharge Disposition: Home, Self-Care 01 Condition: Good - Patient Summary/Data Operative Procedure(s) Performed: None. Electrical cardioversion done in ER, hypotensive post procedure requiring observation stay Complications: Hypotensive post cardivoersion Consults: Consultations 07/20/16 18:27 Consult to Case Management [CONS] Routine Consult to Youth Coordinator [CONS] Routine OT Evaluation and Treatment [CONS] Routine PT Evaluation and Treatment [CONS] Routine Labs Pending at D/C: None Recommended Follow-up Testing/Procedures: Follow up with PCP, Dr. Herrera within 3-5 days for recheck Follow up with Dr. Vieyra, Academic Adviser as previously scheduled. Planned Operative Procedure(s) after DC: None Hospital Course: As above - Patient Instructions Diet: Heart Healthy Diet, Low Sodium Activity: As Tolerated, Rest and Relax Today Driving: Do Not Drive (today) Showering/Bathing: May Shower Notify Provider of: Fever, Increased Pain (palpitations, dizziness, chest pain, shortness of breath) - Discharge Plan Prescriptions/Med Rec: Magnesium Oxide 400 mg PO BID #60 tablet Home Medications: Home Meds Diltiazem [Cardizem CD] 240 mg PO DAILY 07/11/14 [History] Estradiol [Vagifem] 10 mcg PO ASDIRECTED 07/11/14 [History] Metoprolol Tartrate [Lopressor] 50 mg PO BID 07/11/14 [History] Olmesartan Medoxomil [Benicar] 10 mg PO DAILY 07/11/14 [History] Omeprazole [Prilosec] 20 mg PO DAILY 07/11/14 [History] Triamcinolone Acetonide [Triamcinolone Acetonide 0.1% Crm] 1 applic TOP ASDIRECTED 07/11/14 [History] metFORMIN [Glucophage XR] 1,000 mg PO BID 07/11/14 [History] Digoxin [Lanoxin] 125 mcg PO DAILY #30 tablet 07/13/14 [Rx] Rivaroxaban [Xarelto] 20 mg PO QPM #30 tablet 07/13/14 [Rx] Levothyroxine 25 mcg PO ACBREAKFAST 07/21/16 [History] Magnesium Oxide 400 mg PO BID #60 tablet 07/21/16 [Rx] Patient Handouts: Electrical Cardioversion, Care After, Atrial Flutter, Heart Failure, [id number] Forms: ED Department Discharge Referrals: Cheko Herrera MD [Primary Care Provider] - 07/28/16 1:15 pm - Discharge Summary/Plan Comment DC Time >30 min.: Yes (40 min) - General Info Date of Service: 07/21/16 Admission Dx/Problem (Free Text: Admission Diagnosis/Problem Admission Diagnosis/Problem Hypotension Functional Status: Reports: pain controlled, tolerating diet, ambulating, urinating. Denies: new symptoms - Review of Systems General: Reports: no symptoms HEENT: Reports: no symptoms Pulmonary: Reports: no symptoms Cardiovascular: Reports: no symptoms. Denies: chest pain, palpitations, dyspnea on exertion Gastrointestinal: Reports: No symptoms Genitourinary: Reports: no symptoms Musculoskeletal: Reports: no symptoms Skin: Reports: no symptoms Neurological: Reports: no symptoms Psychiatric: Reports: no symptoms - Patient Data Vitals - Most Recent: Last Vital Signs Temp 98.2 F 07/21/16 08:19 Pulse 89 07/21/16 08:25 Resp 18 07/21/16 08:19 BP 143/99 H 07/21/16 08:25 Pulse Ox 96 07/21/16 08:19 Weight - Most Recent: 214 lb 9.6 oz I&O - Last 24 hours: Intake & Output 07/20/16 07/21/16 07/21/16 22:59 06:59 14:59 Intake Total 1645 Output Total 900 Balance 745 Lab Results - Last 24 hrs: Laboratory Results - last 24 hr 07/21/16 07/21/16 07/21/16 Range/Units 06:37 06:54 06:54 WBC 8.12 (3.98-10.04) K/mm3 RBC 4.74 (3.98-5.22) M/mm3 Hgb 13.7 (11.2-15.7) gm/L Hct 42.1 (34.1-44.9) % MCV 88.8 (79.4-94.8) fl MCH 28.9 (25.6-32.2) pg MCHC 32.5 (32.2-35.5) g/dl RDW Std Deviation 44.9 (36.4-46.3) fL Plt Count 236 (182-369) K/mm3 MPV 10.3 (9.4-12.3) fl Neut % (Auto) 47.5 (34.0-71.1) % Lymph % (Auto) 35.2 (19.3-51.7) % [place] % (Auto) 9.9 (4.7-12.5) % Eos % (Auto) 6.8 H (0.7-5.8) Baso % (Auto) 0.4 (0.1-1.2) % Neut # 3.86 (1.56-6.13) K/mm3 Lymph # 2.86 (1.18-3.74) K/mm3 [place] # 0.80 H (0.24-0.36) K/mm3 Eos # 0.55 H (0.04-0.36) K/mm3 Baso # 0.03 (0.01-0.08) K/mm3 Sodium 140 (136-145) mEq/L Potassium 3.7 (3.5-5.1) mEq/L Chloride 105 (98-107) mEq/L Carbon Dioxide 27 (21-32) mEq/L Anion Gap 11.7 (5-15) BUN 18 (7-18) mg/dL Creatinine 1.0 (0.55-1.02) mg/dL Est Cr Clr Drug Dosing 55.80 mL/min Estimated GFR (MDRD) 55 (>60) mL/min BUN/Creatinine Ratio 18.0 (14-18) Glucose 93 (83-115) mg/dL POC Glucose 90 (83-110) mg/dL Calcium 9.3 (8.5-10.1) mg/dL Magnesium 1.6 L (1.8-2.4) mg/dl Free T4 1.04 (0.76-1.46) ng/dL TSH 3rd Generation 0.634 (0.358-3.74) uIU/mL Med Orders - Current: Current Medications Acetaminophen (Tylenol) 650 mg PO Q4H PRN PRN Reason: Pain (Mild 1-3)/fever Acetaminophen/Hydrocodone Bitart (Egan 325-5 Mg) 1 tab PO Q4H PRN PRN Reason: Pain (moderate 4-6) Albuterol/Ipratropium (Duoneb 3.0-0.5 Mg/3 Ml) 3 ml NEB Q4H PRN PRN Reason: Shortness Of Breath/wheezing Bisacodyl (Dulcolax) 5 mg PO DAILY PRN PRN Reason: Constipation Dextrose/Water (Dextrose 50% In Water) 50 ml IVPUSH ASDIRECTED PRN PRN Reason: Hypoglycemia Digoxin (Lanoxin) 125 mcg PO DAILY [facility] Last Admin: 07/21/16 08:24 Dose: 125 mcg Diltiazem HCl (Dilacor Xr) 240 mg PO DAILY [facility] Last Admin: 07/21/16 08:24 Dose: 240 mg Hydromorphone HCl (Dilaudid) 0.25 mg IVPUSH Q2H PRN PRN Reason: Pain (severe 7-10) Sodium Chloride (Normal Saline) 1,000 mls @ 100 mls/hr IV ASDIRECTED [facility] Last Admin: 07/21/16 06:42 Dose: 100 mls/hr Promethazine HCl 12.5 mg/ (Sodium Chloride) 50.5 mls @ 100 mls/hr IV Q6H PRN PRN Reason: Nausea/Vomiting Magnesium Sulfate 2 gm/ Premix 50 mls @ 25 mls/hr IV ONETIME ONE Stop: 07/21/16 10:07 Last Admin: 07/21/16 08:24 Dose: 25 mls/hr Insulin Aspart (Novolog) 0 unit SUBCUT ACBREAKFASTANDBED [facility] PRN Reason: Protocol Last Admin: 07/21/16 07:41 Dose: Not Given Levothyroxine Sodium (Levothyroxine) 25 mcg PO ACBREAKFAST [facility] Last Admin: 07/21/16 06:38 Dose: 25 mcg Lorazepam (Ativan) 1 mg IV Q6H PRN PRN Reason: Anxiety Metformin HCl (Glucophage) 1,000 mg PO BIDMEALS [facility] Last Admin: 07/21/16 08:38 Dose: 1,000 mg Metoprolol Tartrate (Lopressor) 50 mg PO BID [facility] Last Admin: 07/21/16 08:25 Dose: 50 mg Ondansetron HCl (Zofran) 4 mg IV Q6H PRN PRN Reason: Nausea/Vomiting Pantoprazole Sodium (Protonix) 40 mg PO DAILY@0700 [facility] Last Admin: 07/21/16 06:39 Dose: 40 mg Estradiol [Vagifem] (10 Mcg) 0 each PO WeSa [facility] Polyethylene Glycol (Miralax) 17 gm PO DAILY PRN PRN Reason: Constipation Rivaroxaban (Xarelto) 20 mg PO QPM [facility] Last Admin: 07/20/16 22:27 Dose: 20 mg Senna/Docusate Sodium (Senna Plus) 1 tab PO BID PRN PRN Reason: Constipation Temazepam (Restoril) 15 mg PO BEDTIME PRN PRN Reason: Sleep Triamcinolone Acetonide (Triamcinolone Acetonide 0.1% Crm) 0 gm TOP BID PRN PRN Reason: SKIN IRRITATION Discontinued Medications Diltiazem HCl (Diltiazem) 10 mg IVPUSH ONETIME ONE Stop: 07/20/16 12:19 Last Admin: 07/20/16 12:33 Dose: 5 mg Fentanyl (Sublimaze) 100 mcg IVPUSH ONETIME ONE Stop: 07/20/16 15:20 Last Admin: 07/20/16 15:42 Dose: 100 mcg Furosemide (Lasix) 40 mg IVPUSH NOW ONE Stop: 07/20/16 11:43 Last Admin: 07/20/16 11:58 Dose: 40 mg Metoprolol Tartrate 5 mg/ (Sodium Chloride) 55 mls @ 100 mls/hr IV ONETIME ONE Stop: 07/20/16 14:03 Last Admin: 07/20/16 19:09 Dose: Not Given Sodium Chloride (Normal Saline) 100 mls @ 999 mls/hr IV .BOLUS ONE Stop: 07/20/16 16:20 Magnesium Oxide (Magnesium Oxide) 400 mg PO ONETIME ONE Stop: 07/20/16 16:54 Last Admin: 07/20/16 17:15 Dose: 400 mg Metoclopramide HCl (Reglan) 7.5 mg IVPUSH ONETIME ONE Stop: 07/20/16 15:18 Last Admin: 07/20/16 15:33 Dose: 7.5 mg Metoprolol Tartrate (Lopressor) 5 mg IVPUSH ONETIME ONE Stop: 07/20/16 14:08 Last Admin: 07/20/16 14:14 Dose: 2 mg Midazolam HCl (Versed 1 Mg/Ml) 5 mg IVPUSH ONETIME ONE Stop: 07/20/16 15:20 Last Admin: 07/20/16 15:48 Dose: Not Given Midazolam HCl (Versed 1 Mg/Ml) Confirm Administered Dose 6 mg .ROUTE .STK-MED ONE Stop: 07/20/16 15:33 Last Admin: 07/20/16 15:47 Dose: 6 mg Non-Formulary Medication (Nabumetone [Relafen]) 500 mg PO ASDIRECTED [place] Non-Formulary Medication (Levothyroxine Sodium [Levothyroxine Sodium]) 25 mg PO DAILY [facility] Non-Formulary Medication (Olmesartan) 10 mg PO DAILY [facility] Non-Formulary Medication (Levothyroxine [Levothyroxine]) 25 mcg PO ACBREAKFAST [facility] - Exam Quality Assessment: Reports: DVT prophylaxis General: Reports: alert, oriented, cooperative, no acute distress HEENT: Reports: Pupils equal, Pupils reactive, EOMI, Mucous membr. moist/pink Neck: Reports: supple Lungs: Reports: Clear to auscultation, Normal respiratory effort Cardiovascular: Reports: regular rate, regular rhythm Abdomen: Reports: bowel sounds present, soft, no tenderness (Female) Exam: Deferred Rectal (Female) Exam: Deferred Back Exam: Reports: normal inspection Extremities: Reports: no edema, no calf tenderness Skin: Reports: warm, dry, intact Neurological: Reports: no new focal deficit Psy/Mental Status: Reports: alert, normal affect, normal mood *Q Meaningful Use (DIS) - VTE *Q VTE Criteria *Q: - Stroke *Q Stroke Criteria *Q: - AMI *Q AMI Criteria *Q:
[2016-07-22] MEDS ORDERED: LEVOTHYROXINE 25 MCG PO SCH (06:00)
[2016-07-23] MEDS ORDERED: Estradiol [Vagifem] 10 MCG PO SCH (07:15)
== END 2016-07-21 11:37 | disposition home or self-care (01) ==
LOC: JD.ED 09:46 → JD.MS 18:03
PROVIDERS: ADMIT Internal Medicine; ATTEND Internal Medicine
DX: I48.92 Unspecified atrial flutter (principal); Z79.82 Long term (current) use of aspirin; Z79.01 Long term (current) use of anticoagulants; Z79.899 Other long term (current) drug therapy; I50.33 Acute on chronic diastolic (congestive) heart failure; E78.00 Pure hypercholesterolemia, unspecified; I10 Essential (primary) hypertension; E11.9 Type 2 diabetes mellitus without complications; Z79.84 Long term (current) use of oral hypoglycemic drugs; M19.90 Unspecified osteoarthritis, unspecified site; J45.909 Unspecified asthma, uncomplicated; R05 Cough; R42 Dizziness and giddiness; R10.9 Unspecified abdominal pain; F41.9 Anxiety disorder, unspecified; I45.9 Conduction disorder, unspecified; K21.9 Gastro-esophageal reflux disease without esophagitis; E78.5 Hyperlipidemia, unspecified
CPT/HCPCS: 36415; 71010; 80048; 80053; 80162; 81001; 82553; 82962; 83735; 83880; 84439; 84443; 84484; 85025; 85610; 86140; 87804; 93005; 96361; 96365; 96366; 96375; 97161; 97165; 99285; A9270; G0378; J1940; J2250; J2765; J3010; J7040; 92960; 96374; J3475; J3490

== ENCOUNTER 2020-05-09 00:58 | Emergency (ER) | payer MEDICARE, BC ==
[2020-05-09 01:18] VITALS: BP 162/92; PULSE 96
--- NOTE | 2020-05-09 02:06 | EDM.PDOC ---
ED HPI GENERAL MEDICAL PROBLEM - General Chief Complaint: Abdominal Pain Stated Complaint: CONSTIPATED AND RECTAL BLEEDING Time Seen by Provider: 05/09/20 01:29 Source of Information: Reports: Patient History Limitations: Reports: No Limitations - History of Present Illness INITIAL COMMENTS - FREE TEXT/NARRATIVE: Mrs. Ferrari a pleasant 74-year-old woman who now presents the ED with constipation and lower abdominal pain for the past 9 days. She states that she underwent replacement lumbar spinal fusion on 01/13/2020, and has been on Percocet ever since. She states that she has also been taking senna. She states that she has had only small hard stools over the past 9 days, and that tonight she noticed some blood associated with an attempt at having a bowel movement. She is unable to say if the blood was on top of the stool or mixed in with it. She describes her abdominal pain is crampy in nature, and it comes in waves. In addition to the center, she states that she performed an enema at home about 9 days ago, but has not performed that since. The patient has a history of paroxysmal atrial fibrillation/flutter, and is on Xarelto. Here in the ED, the patient's initial BP is found to be elevated at 162/92, otherwise, she is hemodynamically stable, afebrile, saturating 96% on room air. Other than her constipation and lower abdominal pain, the patient denies having a recent fever, chills, sore throat, ear pain, nasal or sinus congestion, cough, dyspnea, chest pain, palpitations, nausea, vomiting, diarrhea, urinary symptoms, recent weight gain or weight loss, recent black bowel movements, recent joint aches, headaches, or rashes. The patient's PCP is Dr. Cheko Herrera. Her Spinal Surgeon is Dr. Jhonatan Henderson, in [place]. Her T[employer] is Dr. Leonard Mas. She has already received an influenza vaccine this season. Bilateral Abdomen Pain Score (Numeric/FACES): 4 - Related Data Allergies Allergy/AdvReac Type Severity Reaction Status Date / Time formaldehyde Allergy Mild Rash Verified 05/09/20 01:19 latex Allergy Mild Rash Verified 05/09/20 01:19 morphine Allergy Mild Rash Verified 05/09/20 01:19 Sulfa (Sulfonamide Allergy Mild Rash Verified 05/09/20 01:19 Antibiotics) celecoxib Allergy Unknown Cannot Verified 05/09/20 01:19 Remember fluconazole Allergy Unknown Cannot Verified 05/09/20 01:19 Remember quaternium [Quaternium] Allergy Unknown Cannot Verified 05/09/20 01:19 Remember tapentadol AdvReac Intermediate Hallucinati Verified 05/09/20 01:19 ons mushroom Allergy Mild Rash Uncoded 07/21/16 14:03 Home Meds: Home Meds Metoprolol Tartrate [Lopressor] 50 mg PO BID 07/11/14 [History] Omeprazole [Prilosec] 20 mg PO DAILY 07/11/14 [History] estradioL [Vagifem] 10 mcg PO ASDIRECTED 07/11/14 [History] metFORMIN [Glucophage XR] 500 mg PO BID 07/11/14 [History] Rivaroxaban [Xarelto] 20 mg PO QPM #30 tablet 07/13/14 [Rx] Levothyroxine 25 mcg PO ACBREAKFAST 07/21/16 [History] Magnesium Oxide 400 mg PO BID #60 tablet 07/21/16 [Rx] Flecainide [Tambocor] 05/09/20 [History] oxyCODONE HCl/Acetaminophen [Endocet 5-325 Tablet] 1 tab PO Q6HR PRN 05/09/20 [History] Past Medical History Cardiovascular History: Reports: Afib (paroxysmal fib/flutter), High Cholesterol, Hypertension Gastrointestinal History: Reports: GERD Musculoskeletal History: Reports: Osteoarthritis Endocrine/Metabolic History: Reports: Diabetes, Type II, Hypothyroidism - Past Surgical History HEENT Surgical History: Reports: Cataract Surgery (bilateral), Oral Surgery (dental implants), Tonsillectomy GI Surgical History: Reports: Cholecystectomy (1967) Female Surgical History: Reports: Hysterectomy (partial), Other (See Below) (Bladder suspension) Musculoskeletal Surgical History: Reports: Knee Replacement (bilateral), Other (See Below) (Left 2nd toe pinning) Social & Family History - Tobacco Use Tobacco Use Status *Q: Never Tobacco User - Caffeine Use Caffeine Use: Reports: Coffee - Alcohol Use Alcohol Use History: No - Recreational Drug Use Recreational Drug Use: No - Living Situation & Occupation Living situation: Reports: , with Spouse Occupation: Retired ED ROS GENERAL - Review of Systems Review Of Systems: Comprehensive ROS is negative, except as noted in HPI. ED EXAM, GI/ABD - Physical Exam Exam: See Below Exam Limited By: No Limitations General Appearance: Alert, WD/WN, No Apparent Distress Eyes: Bilateral: Normal Appearance, EOMI Ears: Normal External Exam Nose: Normal Inspection Throat/Mouth: Normal Inspection, Normal Voice, No Airway Compromise, Other (Wearing a mask) Head: Atraumatic, Normocephalic Neck: Normal Inspection, Full Range of Motion Respiratory/Chest: No Respiratory Distress, Lungs Clear, Normal Breath Sounds, No Accessory Muscle Use Cardiovascular: Normal Peripheral Pulses, No Gallop, No JVD, No Murmur, No Rub, Irregularly Irregular (regular rate) GI/Abdominal Exam: Normal Bowel Sounds, Soft, Non-Tender (including the lower abdomen), No Organomegaly, No Distention, No Abnormal Bruit, No Mass Rectal (Female) Exam: Normal Rectal Tone, Heme + Stool, Other (Large quantity of thick (not hard) brown stool in the rectal vault. A manual impaction was performed, however, as a stool was removed from the rectum, additional would come down from the colon. At 1 point, a streak of blood was noticed emanating from the rectum, consistent with a bleeding internal hemorrhoid. No significant external hemorrhoids noted.) Back Exam: Normal Inspection Extremities: Normal Inspection, Normal Range of Motion, Normal Capillary Refill Neurological: Alert, Oriented, Normal Cognition, No Motor/Sensory Deficits Psychiatric: Normal Affect Skin Exam: Warm, Dry, Intact, Normal Color, No Rash Course - Vital Signs Last Recorded V/S: Last Vital Signs Temp 36.1 C 05/09/20 01:11 Pulse 96 05/09/20 01:11 Resp 17 05/09/20 01:11 BP 162/92 H 05/09/20 01:11 Pulse Ox 96 05/09/20 01:11 - Orders/Labs/Meds Orders: Active Orders 24 hr Category Date Time Status Enema [RC] ASDIRECTED Care 05/09/20 02:48 Active Abdomen 1V Flat [CR] Stat Exams 05/09/20 01:48 Taken - Re-Assessments/Exams Free Text/Narrative Re-Assessment/Exam: 05/09/20 01:56 On rectal examination, the patient had a copious amount of thick, although not hard, stool in the rectum. I performed a manual disimpaction, recovering a large amount of stool, however, as I would remove stool from the rectum, more would move down from the colon, and as the patient was experiencing significant discomfort, at some point I needed to stop. During the disimpaction, Kitty noted a streak of some blood emanating from the rectum, suggesting a bleeding internal hemorrhoid. No significant external hemorrhoids were visible. I have ordered a abdominal x-ray to get an estimate as to how much stool we are dealing with, after which we will likely try some soap suds enemas. 05/09/20 02:48 Flat abdominal x-ray appears to demonstrate a considerable amount of stool in the rectum and descending colon, with some stool noted elsewhere, as well. Otherwise nonspecific bowel gas pattern. Numerous punctate pelvic phleboliths incidentally noted. Bilateral vertebral screws and rods noted. Noted joint disease of both hips incidentally noted. The abdominal x-ray confirmed what was suspected. I have therefore ordered soapsuds enemas until minimal stool output. 05/09/20 03:38 Notified by María PHELPS that the patient had a fairly good stool output following an enema. 05/09/20 03:52 I went to discuss the discharge instructions with the patient, and she asked me how she was going to be able to get around. She reported that ever since her surgery, she has developed progressively worsening lower extremity weakness. She stated that her has had to bathe and dress her. She had not mentioned anything about that when I interview her initially. She had spoken to her Spinal Surgeon about it several weeks ago, who ordered an MRI of her spine and a DEXA scan, which the patient had, however, the patient has not spoken to her surgeon since then. She states that she called him yesterday, but did not get a call back. I explained that her lower extremity weakness is most likely due to inflammation of the nerves in her back. Hopefully, the nerve function will improve as her s pine heals, however, it is possible that the surgery has led to permanent damage. Only her spinal surgeon would be able to answer that question. I explained that there is no purpose in admitting her to this hospital, since we do not have any spinal surgeons, and cannot address that issue. If she really felt that she was too weak to be able to go home, we would need to make arrangements to transfer her to her spinal surgeon in [place], which would almost certainly be prohibitively expensive. The patient agreed. The plan, then, will be for the patient to go home and continue to have her care for has he has been doing, and she will continue to try to contact her spinal surgeon. Regarding her constipation, I would like her to start taking either Metamucil or MiraLAX on a regular basis. Departure - Departure Time of Disposition: 03:55 Disposition: Home, Self-Care 01 Condition: Good Clinical Impression: Constipation - Discharge Information *PRESCRIPTION DRUG MONITORING PROGRAM REVIEWED*: Not Applicable *COPY OF PRESCRIPTION DRUG MONITORING REPORT IN PATIENT CATHERINE: Not Applicable Referrals: Cheko Herrera MD [Primary Care Provider] - Leonard Mas DO [Ordering Only Provider] - Jhonatan Henderson MD [Ordering Only Provider] - Forms: ED Department Discharge Additional Instructions: You were seen in the emergency room for 9 days of constipation and lower abdominal pain, with some blood noticed on the stool tonight. Work-up in the ER included x-rays of your abdomen, which confirmed constipation. You were manually disimpacted and given soapsuds enemas, with good stool output. If you feel you still need additional relief of constipation, we recommend that you use an [id number] enema. Going forward, in order to prevent constipation, we recommend that you start taking either Metamucil or MiraLAX, with a tall glass of water, on a regular basis, in accordance with the directions on the label. With respect to your lower extremity weakness, we recommend that you contact your Spinal Surgeon, Dr. Jhonatan Henderson, to see what needs to be done. If any other problems, please do not hesitate to return to the ER. Sepsis Event Note (ED) - Evaluation Sepsis Screening Result: No Definite Risk - Focused Exam Vital Signs: Vital Signs Temp Pulse Resp BP Pulse Ox 05/09/20 01:11 36.1 C 96 17 162/92 H 96 - My Orders Last 24 Hours: My Active Orders 05/09/20 01:48 Abdomen 1V Flat [CR] Stat 05/09/20 02:48 Enema [RC] ASDIRECTED - Assessment/Plan Last 24 Hours: My Active Orders 05/09/20 01:48 Abdomen 1V Flat [CR] Stat 05/09/20 02:48 Enema [RC] ASDIRECTED
--- NOTE | 2020-05-09 08:50 | CR ---
Abdomen: Supine view of the abdomen was obtained. Comparison: No prior abdominal imaging is available. Previous lower thoracic and lumbar spine surgery is seen. Slight increased stool within the rectosigmoid and left colon is noted. Gas and mild stool is seen within the transverse and right colon. Calcifications are seen within the pelvis which are most likely due to phleboliths. Impression: 1. Findings as noted above. Diagnostic code #2
== END 2020-05-09 04:30 | disposition home or self-care (01) ==
LOC: JD.ED 00:58
DX: K59.00 Constipation, unspecified (principal); I48.91 Unspecified atrial fibrillation; I10 Essential (primary) hypertension; K21.9 Gastro-esophageal reflux disease without esophagitis; E11.9 Type 2 diabetes mellitus without complications; E03.9 Hypothyroidism, unspecified; Z88.8 Allergy status to other drugs, medicaments and biological substances; Z91.040 Latex allergy status; Z88.5 Allergy status to narcotic agent; Z88.2 Allergy status to sulfonamides; Z91.018 Allergy to other foods; Z79.01 Long term (current) use of anticoagulants; Z79.84 Long term (current) use of oral hypoglycemic drugs; Z79.899 Other long term (current) drug therapy
CPT/HCPCS: 74018; 74018-26; 99283-25

== ENCOUNTER 2020-05-12 11:05 | Emergency (ER) | payer MEDICARE, BC ==
[2020-05-12 11:21] VITALS: BP 161/93; PULSE 83
--- NOTE | 2020-05-12 11:42 | EDM.PDOC ---
ED HPI GENERAL MEDICAL PROBLEM - General Chief Complaint: Cardiovascular Problem Stated Complaint: [facility] Time Seen by Provider: 05/12/20 11:25 - History of Present Illness INITIAL COMMENTS - FREE TEXT/NARRATIVE: 74-year-old female brought in by [facility] with heart palpitations and worsening weakness in the lower extremities. Patient had palpitations this morning and she took what sounds like flecainide as she does this intermittent A. fib. She took 2 or 3 doses of the flecainide earlier today. She seems to be in sinus rhythm right now and the palpitations have resolved. Patient also complains of lower extremity weakness this is been an ongoing issue since about January however got much worse the patient fell approximately a week ago landing on her buttocks and since that time she has had progressive weakness in the lower extremities. The patient can hardly ambulate on her own at this point and she is having worsening weakness involving the lower extremities. She denies hitting her head with the fall. She had an MRI done on 30 April showed some surgical changes at T9 down to L1. There was some abnormal signal at T9 radiology was concerned about the possibility of prior surgical change causing this or possibly infection. Patient has not had any fevers or chills. Treatments TRAVELING ENGINEER: Reports: Other Medication(s) Other Treatments TRAVELING ENGINEER: oxycodone at 1030 Middle Back Pain Score (Numeric/FACES): 8 - Related Data Allergies Allergy/AdvReac Type Severity Reaction Status Date / Time formaldehyde Allergy Mild Rash Verified 05/12/20 11:10 latex Allergy Mild Rash Verified 05/12/20 11:10 morphine Allergy Mild Rash Verified 05/12/20 11:10 Sulfa (Sulfonamide Allergy Mild Rash Verified 05/12/20 11:10 Antibiotics) celecoxib Allergy Unknown Cannot Verified 05/12/20 11:10 Remember fluconazole Allergy Unknown Cannot Verified 05/12/20 11:10 Remember quaternium [Quaternium] Allergy Unknown Cannot Verified 05/12/20 11:10 Remember tapentadol AdvReac Intermediate Hallucinati Verified 05/12/20 11:10 ons mushroom Allergy Mild Rash Uncoded 07/21/16 14:03 Home Meds: Home Meds Metoprolol Tartrate [Lopressor] 50 mg PO BID 07/11/14 [History] Omeprazole [Prilosec] 20 mg PO DAILY 07/11/14 [History] estradioL [Vagifem] 10 mcg PO ASDIRECTED 07/11/14 [History] metFORMIN [Glucophage XR] 500 mg PO BID 07/11/14 [History] Rivaroxaban [Xarelto] 20 mg PO QPM #30 tablet 07/13/14 [Rx] Levothyroxine 25 mcg PO ACBREAKFAST 07/21/16 [History] Magnesium Oxide 400 mg PO BID #60 tablet 07/21/16 [Rx] Flecainide [Tambocor] 05/09/20 [History] oxyCODONE HCl/Acetaminophen [Endocet 5-325 Tablet] 1 tab PO Q6HR PRN 05/09/20 [History] fentaNYL [Duragesic] 50 mcg TOP ASDIRECTED PRN 05/12/20 [History] Past Medical History Cardiovascular History: Reports: Afib, High Cholesterol, Hypertension Other Cardiovascular History: 07/21/15 was cardioverted in er and then admitted to [facility] for observation Respiratory History: Reports: Asthma Gastrointestinal History: Reports: GERD MANAGER CLIENT SUPPORT History: Reports: Other (See Below) Other MANAGER CLIENT SUPPORT History: pelvic prolapse, bladder lift Musculoskeletal History: Reports: Osteoarthritis Neurological History: Reports: None Psychiatric History: Reports: None Endocrine/Metabolic History: Reports: Diabetes, Type II, Hypothyroidism Hematologic History: Reports: None Immunologic History: Reports: None Dermatologic History: Reports: None - Infectious Disease History Infectious Disease History: Reports: Chicken Pox - Past Surgical History Head Surgeries/Procedures: Reports: None HEENT Surgical History: Reports: Cataract Surgery, Oral Surgery, Tonsillectomy Respiratory Surgical History: Reports: None GI Surgical History: Reports: Cholecystectomy Female Surgical History: Reports: Hysterectomy, Other (See Below) Endocrine Surgical History: Reports: None Musculoskeletal Surgical History: Reports: Knee Replacement, Other (See Below) Other Musculoskeletal Surgeries/Procedures:: several back surgeries. spinal fusion 01/13/2020 Oncologic Surgical History: Reports: None Dermatological Surgical History: Reports: None Social & Family History - Family History Family Medical History: No Pertinent Family History - Tobacco Use Tobacco Use Status *Q: Never Tobacco User - Caffeine Use Caffeine Use: Reports: Coffee, Soda - Recreational Drug Use Recreational Drug Use: No - Living Situation & Occupation Living situation: Reports: , with Spouse Occupation: Retired ED ROS GENERAL - Review of Systems Review Of Systems: See Below Constitutional: Reports: No Symptoms HEENT: Reports: No Symptoms Respiratory: Reports: No Symptoms Cardiovascular: Reports: Palpitations. Denies: Chest Pain, Dyspnea on Exertion, Edema Endocrine: Reports: No Symptoms GI/Abdominal: Reports: No Symptoms : Reports: No Symptoms Musculoskeletal: Reports: Back Pain Skin: Reports: No Symptoms Neurological: Reports: Weakness (Bilateral lower extremities no loss of bowel or bladder control) Hematologic/Lymphatic: Reports: No Symptoms ED EXAM, GENERAL - Physical Exam Exam: See Below Exam Limited By: No Limitations General Appearance: Alert, No Apparent Distress Head: Atraumatic, Normocephalic Neck: Normal Inspection, Supple, Non-Tender, Full Range of Motion. No: Lymphadenopathy (L), Lymphadenopathy (R) Respiratory/Chest: No Respiratory Distress, Lungs Clear, Normal Breath Sounds Cardiovascular: Regular Rate, Rhythm, No Edema, No Murmur GI/Abdominal: Normal Bowel Sounds, Soft, Non-Tender Back Exam: Normal Inspection. No: CVA Tenderness (L), CVA Tenderness (R), Vertebral Tenderness Extremities: Other (No significant edema significant weakness in both lower extremities however) Neurological: Alert, Oriented, Normal Cognition, Other (Patient has extreme weakness in her lower extremities we attempted to ambulate her and this just did not work she cannot do much of anything on her own) Psychiatric: Normal Affect, Normal Mood Skin Exam: Warm, Dry, Intact Course - Vital Signs Last Recorded V/S: Last Vital Signs Temp 36.2 C 05/12/20 11:18 Pulse 83 05/12/20 11:18 Resp 18 05/12/20 11:18 BP 161/93 H 05/12/20 11:18 Pulse Ox 96 05/12/20 11:18 - Orders/Labs/Meds Labs: Laboratory Tests 05/12/20 05/12/20 05/12/20 Range/Units 11:10 11:10 11:10 WBC 9.48 (3.98-10.04) K/mm3 RBC 4.47 (3.98-5.22) M/mm3 Hgb 11.3 D (11.2-15.7) gm/dl Hct 36.5 (34.1-44.9) % MCV 81.7 D (79.4-94.8) fl MCH 25.3 L (25.6-32.2) pg MCHC 31.0 L (32.2-35.5) g/dl RDW Std Deviation 51.4 H (36.4-46.3) fL Plt Count 431 H D (182-369) K/mm3 MPV 9.7 (9.4-12.3) fl Neut % (Auto) 71.9 H (34.0-71.1) % Lymph % (Auto) 18.0 L (19.3-51.7) % [place] % (Auto) 7.9 (4.7-12.5) % Eos % (Auto) 1.9 (0.7-5.8) Baso % (Auto) 0.2 (0.1-1.2) % Neut # (Auto) 6.81 H (1.56-6.13) K/mm3 Lymph # (Auto) 1.71 (1.18-3.74) K/mm3 [place] # (Auto) 0.75 H (0.24-0.36) K/mm3 Eos # (Auto) 0.18 (0.04-0.36) K/mm3 Baso # (Auto) 0.02 (0.01-0.08) K/mm3 PT 12.4 H (9.7-12.0) SECONDS INR 1.16 APTT 28.5 (21.7-31.4) SECONDS Sodium 137 (136-145) mEq/L Potassium 3.6 (3.5-5.1) mEq/L Chloride 100 (98-107) mEq/L Carbon Dioxide 29 (21-32) mEq/L Anion Gap 11.6 (5-15) BUN 16 (7-18) mg/dL Creatinine 1.0 (0.55-1.02) mg/dL Est Cr Clr Drug Dosing 49.79 mL/min Estimated GFR (MDRD) 54 (>60) mL/min BUN/Creatinine Ratio 16.0 (14-18) Glucose 119 H (83-115) mg/dL Calcium 9.9 (8.5-10.1) mg/dL Magnesium 1.9 (1.8-2.4) mg/dl Total Bilirubin 0.5 (0.2-1.0) mg/dL AST 15 (15-37) U/L ALT 18 (14-59) U/L Alkaline Phosphatase 104 (46-116) U/L Troponin I < 0.017 (0.00-0.056) ng/mL C-Reactive Protein (<1.0) mg/dL Total Protein 7.5 (6.4-8.2) g/dl Albumin 3.2 L (3.4-5.0) g/dl Globulin 4.3 gm/dL Albumin/Globulin Ratio 0.7 L (1-2) Urine Color (Yellow) Urine Appearance (Clear) Urine pH (5.0-8.0) Ur Specific [place] (1.005-1.030) Urine Protein (Negative) Urine Glucose (UA) (Negative) Urine Ketones (Negative) Urine Occult Blood (Negative) Urine Nitrite (Negative) Urine Bilirubin (Negative) Urine Urobilinogen (0.2-1.0) Ur Leukocyte Esterase (Negative) U Hyaline Cast (Auto) (0-5) /lpf Urine RBC (0-5) /hpf Urine WBC (0-5) /hpf Ur Squamous Epith Cells (0-5) /hpf Amorphous Sediment (NOT SEEN) /hpf Urine Bacteria (FEW) /hpf Urine Mucus (FEW) /hpf 05/12/20 05/12/20 Range/Units 11:10 12:45 WBC (3.98-10.04) K/mm3 RBC (3.98-5.22) M/mm3 Hgb (11.2-15.7) gm/dl Hct (34.1-44.9) % MCV (79.4-94.8) fl MCH (25.6-32.2) pg MCHC (32.2-35.5) g/dl RDW Std Deviation (36.4-46.3) fL Plt Count (182-369) K/mm3 MPV (9.4-12.3) fl Neut % (Auto) (34.0-71.1) % Lymph % (Auto) (19.3-51.7) % [place] % (Auto) (4.7-12.5) % Eos % (Auto) (0.7-5.8) Baso % (Auto) (0.1-1.2) % Neut # (Auto) (1.56-6.13) K/mm3 Lymph # (Auto) (1.18-3.74) K/mm3 [place] # (Auto) (0.24-0.36) K/mm3 Eos # (Auto) (0.04-0.36) K/mm3 Baso # (Auto) (0.01-0.08) K/mm3 PT (9.7-12.0) SECONDS INR APTT (21.7-31.4) SECONDS Sodium (136-145) mEq/L Potassium (3.5-5.1) mEq/L Chloride (98-107) mEq/L Carbon Dioxide (21-32) mEq/L Anion Gap (5-15) BUN (7-18) mg/dL Creatinine (0.55-1.02) mg/dL Est Cr Clr Drug Dosing mL/min Estimated GFR (MDRD) (>60) mL/min BUN/Creatinine Ratio (14-18) Glucose (83-115) mg/dL Calcium (8.5-10.1) mg/dL Magnesium (1.8-2.4) mg/dl Total Bilirubin (0.2-1.0) mg/dL AST (15-37) U/L ALT (14-59) U/L Alkaline Phosphatase (46-116) U/L Troponin I (0.00-0.056) ng/mL C-Reactive Protein 2.4 H* (<1.0) mg/dL Total Protein (6.4-8.2) g/dl Albumin (3.4-5.0) g/dl Globulin gm/dL Albumin/Globulin Ratio (1-2) Urine Color Yellow (Yellow) Urine Appearance Clear (Clear) Urine pH 7.0 (5.0-8.0) Ur Specific [place] 1.020 (1.005-1.030) Urine Protein Negative (Negative) Urine Glucose (UA) Negative (Negative) Urine Ketones Negative (Negative) Urine Occult Blood Trace-lysed H (Negative) Urine Nitrite Negative (Negative) Urine Bilirubin Negative (Negative) Urine Urobilinogen 0.2 (0.2-1.0) Ur Leukocyte Esterase Negative (Negative) U Hyaline Cast (Auto) 0-5 (0-5) /lpf Urine RBC 5-10 H (0-5) /hpf Urine WBC 0-5 (0-5) /hpf Ur Squamous Epith Cells 0-5 (0-5) /hpf Amorphous Sediment Moderate H (NOT SEEN) /hpf Urine Bacteria Few (FEW) /hpf Urine Mucus Not seen (FEW) /hpf - Re-Assessments/Exams Free Text/Narrative Re-Assessment/Exam: 05/12/20 16:46 Laboratory evaluation is really noncontributory. C-reactive protein is up a little bit at 2.4 CT of her thoracic spine showed destruction of the at the endplates at T9 and 10 which is increased since her MRI done on 30 April there is also posterior bone density seen in the central canal causing some mild the central canal stenosis which is changed from the MRI done couple weeks ago. At this point the next evaluation would be an MRI which is not available in [place]. The patient's case was discussed with Dr. Hutchinson, neurosurgeon at [facility] who agrees the patient needs an MRI and would like the patient to be evaluated in the emergency room. The case was discussed with Dr. Sanchez, ER physician at [facility] who kindly accepts the patient I discussed the situation with him at 1630 Mountain time. The patient will be sent by ground ambulance. Case updated with the patient's . Departure - Departure Time of Disposition: 16:30 Disposition: DC/Tfer to Acute Hospital 02 Reason for Transfer *Q: Other Clinical Impression: Weakness of lower extremity, Central stenosis of spinal canal Referrals: Cheko Herrera MD [Primary Care Provider] - Forms: ED Department Discharge Sepsis Event Note (ED) - Evaluation Sepsis Screening Result: No Definite Risk - Focused Exam Vital Signs: Vital Signs Temp Pulse Resp BP Pulse Ox 05/12/20 11:18 36.2 C 83 18 161/93 H 96
--- NOTE | 2020-05-12 15:13 | CR ---
Chest: Portable view of the chest was obtained. Comparison: Previous chest x-ray of 07/20/69. Transpedicle screws are seen within the lower thoracic spine and lumbar spine which show some change from previous exam. Heart size is normal. Tortuous thoracic aorta is seen. Stable calcified granuloma is noted within left lung base. Lungs otherwise are clear without acute parenchymal change. No gross bony abnormality is otherwise seen. Impression: 1. Findings as noted above which are chronic. 2. Nothing acute is seen. Diagnostic code #2
--- NOTE | 2020-05-12 15:20 | CT ---
CT cervical spine Technique: Multiple axial sections through the cervical spine were obtained. Reconstructed coronal and sagittal images were obtained. Findings: Slight bony density is noted off the tip of the spinous process of T1 which is old. Vertebral body heights are maintained. Mild disc space narrowing is noted at C4-5. There is an incomplete arch of C1 being seen which appears to be old. Mild scattered degenerative apophyseal change is seen. No central canal stenosis or neural foraminal stenosis is seen. No abnormal subluxation is appreciated. Impression: 1. Mild degenerative change as noted above. 2. No acute fracture or abnormal subluxation is seen. Diagnostic code #2
--- NOTE | 2020-05-12 15:20 | CT ---
CT lumbar spine Technique: Multiple axial sections were obtained to the lumbar spine. Reconstructed coronal and sagittal images were obtained. Findings: Diffuse surgery is noted throughout the lumbar spine with posterior fixation hardware as well as intervertebral disc spacers. Diffuse osteopenia is also noted. No acute fracture is appreciated. No abnormal subluxation is definitely seen. Impression: 1. Diffuse evidence of prior surgery causing osteopenia. 2. Nothing acute is definitely appreciated on CT study of the lumbar spine. Diagnostic code #2
--- NOTE | 2020-05-12 15:22 | CT ---
CT thoracic spine Technique: Multiple axial sections through the thoracic spine were obtained. Reconstructed coronal and sagittal images were obtained. Comparison: Prior MRI thoracic spine study of 04/30/20. Findings: There is destruction noted of the endplates at T9-10. This has increased in prominence from prior MRI and most likely represents diffuse infection. There is posterior spurring being seen at this level causing mild central canal stenosis. There is surgery noted at T10 and through the other portions of the lumbar spine. No other areas of osteolysis is seen. No other acute abnormality is appreciated. Impression: 1. 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 There is mild posterior bony density seen into the central canal causing mild central canal stenosis which is also an interval change. 2. Prior surgery as noted above. No other acute finding is appreciated. Diagnostic code #5
== END 2020-05-12 17:55 ==
LOC: JD.ED 11:05
DX: M62.81 Muscle weakness (generalized) (principal); M48.04 Spinal stenosis, thoracic region; E03.9 Hypothyroidism, unspecified; I48.91 Unspecified atrial fibrillation; I10 Essential (primary) hypertension; J45.909 Unspecified asthma, uncomplicated; K21.9 Gastro-esophageal reflux disease without esophagitis; E11.9 Type 2 diabetes mellitus without complications; Z20.822 Contact with and (suspected) exposure to COVID-19; Z88.8 Allergy status to other drugs, medicaments and biological substances; Z91.040 Latex allergy status; Z88.5 Allergy status to narcotic agent; Z88.2 Allergy status to sulfonamides; Z91.018 Allergy to other foods; Z79.01 Long term (current) use of anticoagulants; Z79.84 Long term (current) use of oral hypoglycemic drugs; Z79.899 Other long term (current) drug therapy
CPT/HCPCS: 36415; 71045; 72125; 72128; 72131; 80053; 81001; 83735; 84484; 85025; 85610; 85730; 86140; 99285; U0002

== ENCOUNTER 2023-02-10 16:21 | Emergency (ER) | payer MEDICARE, BC ==
[2023-02-10] MEDS ORDERED: Magnesium Sulfate/Water 2 GM in Premix Bag 1 BAG IV ONE (16:52)
[2023-02-10 17:35] LABS: BASOPHILS ABSOLUTE AUTO 0.1 K/mm3 (0.0-0.2); BASOPHILS PERCENT AUTO 0.6 % (0.0-1.0); EOSINOPHILS ABSOLUTE AUTO 0.3 K/mm3 (0.0-0.4); EOSINOPHILS PERCENT AUTO 3.9 % (0.0-6.0); HEMOGLOBIN 12.7 gm/dl (12.0-16.0); IMMATURE GRAN ABSOLUTE AUTO 0.02 K/mm3 (0.00-0.05); IMMATURE GRAN PERCENT AUTO 0.3 % (0.0-0.4); LYMPHOCYTES ABSOLUTE AUTO 2.6 K/mm3 (1.0-4.8); LYMPHOCYTES PERCENT AUTO 33.9 % (24.0-44.0); MEAN CORPUSCULAR HEMOGLOBIN 30.1 pg (28.0-32.0); MEAN CORPUSCULAR HGB CONC 32.6 g/dl (32.0-36.0); MEAN CORPUSCULAR VOLUME 92.4 fl (83.0-99.0); MEAN PLATELET VOLUME 10.2 fl (9.4-12.3); MONOCYTES ABSOLUTE AUTO 0.8 K/mm3 (0.0-0.8); MONOCYTES PERCENT AUTO 10.3 % (0.0-8.0); PLATELET COUNT,PLT 235 K/mm3 (150-400); RED BLOOD CELL COUNT 4.22 M/mm3 (4.10-5.30); WHITE BLOOD CELL COUNT,WBC 7.75 K/mm3 (3.9-11.3)
[2023-02-10 17:55] LABS: INR 1.08; PROTHROMBIN TIME 11.5 SECONDS (9.7-12.0)
[2023-02-10 18:07] LABS: APPEARANCE,URINE CLEAR (Clear); BILIRUBIN,URINE NEGATIVE (Negative); COLOR,URINE LIGHT YELLOW (Yellow); GLUCOSE,URINE NEGATIVE (Negative); KETONES,URINE NEGATIVE (Negative); LEUKOCYTE ESTERASE,URINE TRACE (Negative); NITRITE,URINE NEGATIVE (Negative); OCCULT BLOOD,URINE NEGATIVE (Negative); PROTEIN,URINE NEGATIVE (Negative); UROBILINOGEN,URINE 0.2 (0.2-1.0)
[2023-02-10 18:13] LABS: A/G RATIO 0.9 (1-2); ALBUMIN 3.2 g/dl (3.4-5.0); ANION GAP 11.3 (5-15); BILIRUBIN TOTAL 0.3 mg/dL (0.2-1.0); BUN/CREATININE RATIO 15.5 (14-18); CALCIUM 9.2 mg/dL (8.5-10.1); CREATININE 1.1 mg/dL (0.55-1.02); EST CRCL DRUG DOSING (CG) 44.76 mL/min; POTASSIUM,K 4.3 mEq/L (3.5-5.1); PROTEIN TOTAL,TP 6.8 g/dl (6.4-8.2)
[2023-02-10 18:29] LABS: RBC,URINE 0-5 /hpf (0-5)
[2023-02-10 18:30] LABS: BACTERIA,URINE FEW /hpf (FEW); MUCUS,URINE FEW /hpf (FEW)
[2023-02-10] MEDS ORDERED: Metoprolol Tartrate 50 MG Tab PO ONE (18:42)
[2023-02-10] MEDS ORDERED: Carvedilol 12.5 MG Tab PO ONE (18:51)
[2023-02-10 21:18] VITALS: BP 104/60; PULSE 97
== END 2023-02-10 20:25 | disposition home or self-care (01) ==
LOC: JD.ED 16:21
DX: I48.91 Unspecified atrial fibrillation (principal); I10 Essential (primary) hypertension; J45.909 Unspecified asthma, uncomplicated; K21.9 Gastro-esophageal reflux disease without esophagitis; E11.9 Type 2 diabetes mellitus without complications; E03.9 Hypothyroidism, unspecified; Z88.8 Allergy status to other drugs, medicaments and biological substances; Z91.018 Allergy to other foods; Z91.040 Latex allergy status; Z88.5 Allergy status to narcotic agent; Z88.2 Allergy status to sulfonamides; Z88.1 Allergy status to other antibiotic agents; Z79.01 Long term (current) use of anticoagulants; Z79.84 Long term (current) use of oral hypoglycemic drugs; Z79.899 Other long term (current) drug therapy
CPT/HCPCS: 36415; 71045; 80053; 81001; 83735; 84443; 84484; 85025; 85610; 87086; 93005; 96365; 99285; A9270; J3475; 93010; 99283